=== PATIENT | male | born 1980 | race Caucasian/White ===

== ENCOUNTER 2023-07-07 16:43 | Inpatient (IN) | payer OTHER ==
[~2023-07-07] VITALS: Ht 177.8 cm; Wt 213.1 kg
[~2023-07-07 16:43] MED LIST: CARV6.25 PO; Carvedilol12.5 MG PO; DIPATR PO; LISI5 PO; Prinivil10 MG PO; RXDIPATR PO; XARELTO20 MG PO
[2023-07-07 17:19] LABS: BASOPHILS ABSOLUTE AUTO 0.05 K/mm3 (0.00-0.23); BASOPHILS PERCENT AUTO 0 % (0-2); EOSINOPHILS ABSOLUTE AUTO 0.18 K/mm3 (0.00-0.68); EOSINOPHILS PERCENT AUTO 2 % (0-6); Hemoglobin 15.4 g/dL (13.5-17.5); IMMATURE GRAN ABSOLUTE AUTO 0.04 K/mm3 (0.00-0.10); IMMATURE GRAN PERCENT AUTO 0 % (0-1); LYMPHOCYTES ABSOLUTE AUTO 1.96 K/mm3 (0.84-5.20); LYMPHOCYTES PERCENT AUTO 16 % (21-46); MONOCYTES ABSOLUTE AUTO 0.83 K/mm3 (0.16-1.47); MONOCYTES PERCENT AUTO 7 % (4-13); Mean Corpuscular HGB 28.6 pg (26.0-34.0); Mean Corpuscular HGB Conc 34.2 g/dL (31.5-36.5); Mean Corpuscular Volume 84 fL (80-100); Mean Platelet Volume 10.5 fL (9.1-12.4); NEUTROPHILS PERCENT AUTO 75 % (41-73); Platelet Count 296 K/mm3 (150-400); RDW Coefficient Variation 14.3 % (11.7-14.2); RDW Standard Deviation 43.2 fL (35.1-46.3); Red Blood Cell Count 5.39 M/mm3 (4.30-5.90); White Blood Cell Count 12.16 K/mm3 (4.00-11.30)
[2023-07-07 17:42] LABS: Albumin, Blood 3.6 g/dL (3.4-5.0); Albumin/Globulin Ratio 1.1 (0.8-1.8); Bun/Creatinine Ratio 22.4 (12.0-20.0); Calcium, Blood 8.5 mg/dL (8.5-10.1); Creatinine, Blood 1.52 mg/dL (0.60-1.20); Globulin, Blood 3.2 g/dL (2.2-4.0); Magnesium, Blood 1.9 mg/dL (1.6-2.4); Total Protein, Blood 6.8 g/dL (6.4-8.2)
[2023-07-07 21:26] LABS: Influenza A, PCR NEGATIVE (NEGATIVE); Influenza B, PCR NEGATIVE (NEGATIVE); Resp Syncytial Virus, PCR NEGATIVE (NEGATIVE); SARS-Cov-2 (COVID-19) PCR, MMC NEGATIVE (NEGATIVE)
[2023-07-07 21:55] VITALS: BP 137/92
[2023-07-07] MEDS ORDERED: HYDCHL50 PO (22:05)
[2023-07-07] MEDS ORDERED: AMLO10 PO (22:06)
[2023-07-07] MEDS ORDERED: CITALOPRAM HBR10 MG PO (22:07)
--- NOTE | 2023-07-07 22:45 | NUR ---
ARRIVAL TO UNIT PATIENT ARRIVED TO UNIT FROM ED VIA [facility] AT APPROX 2150. PATIENT ABLE TO STAND AND TRANSFER FROM [facility] TO BED INDEPENDENTLY. IS ALERT AND ORIENTED X4. COOPERATIVE WITH CARE AND ABLE TO COMMUNICATE NEEDS EFFECTIVELY. TELEMETRY SHOWING AFIB RATE 110's-130's WITH FREQUENT RATE INCREASES TO 150's-160's AT REST. RATE INCREASE 160's-170's WITH ACTIVITY. CARDIZEM GTT INCREASED FROM 15ML TO 20ML/HR. BP STABLE. DENIES CHEST PAIN OR PRESSURE. NO REPORT OF SHORTNESS OF BREATH. PO COREG AND IV LASIX ADMINISTERED PER EMAR. PATIENT REPORTING THAT HE STOPPED TAKING XARELTO APPROXIMATELY 1 MONTH AGO DUE TO COST, ORDERED DOSE ADMINISTERED PER EMAR. IS ON ROOM AIR, SATS >92%. REPORTS 7/10 RECTAL PAIN. RECEIVED IV FENTANYL IN THE ED. PATIENT REPORTING THAT "IT DIDN'T REALLY HELP FOR THAT LONG." PO TYLENOL ORDERED, PATIENT REPORTING THAT "TYLENOL WON'T TOUCH IT." THIS RN CONTACTED MD MARION. TO PUT IN ORDER FOR PO PAIN MANAGEMENT. WILL ADMINISTER PER EMAR.
--- NOTE | 2023-07-07 23:02 | NUR ---
PATIENT USES A CPAP AT HOME WHILE SLEEPING FOR NICHOLAS. HOME DEVICE NOT PRESENT AT BEDSIDE. MD MARION CONTACTED. RECEIVED ORDER FOR CPAP. RESPIRATORY THERAPY CONTACTED FOR SET-UP.
[2023-07-07 23:14] VITALS: BP 115/81
[2023-07-08] VITALS (7 sets, daily range): BP systolic 97–119; BP diastolic 61–96
[2023-07-08 01:16] LABS: Adenovirus F 40/41 Not Detected (NOT DETECT); Astrovirus Not Detected (NOT DETECT); Campylobacter Sp Not Detected (NOT DETECT); Cryptosporidium Not Detected (NOT DETECT); Cyclospora Cayetanensis Not Detected (NOT DETECT); E. Coli O157 Not Detected (NOT DETECT); Entamoeba Histolytica Not Detected (NOT DETECT); Enteroaggregative E. coli-EAEC Not Detected (NOT DETECT); Enteropathogenic E. coli-EPEC Not Detected (NOT DETECT); Enterotoxigenic E. coli-ETEC Not Detected (NOT DETECT); Giardia Lamblia Not Detected (NOT DETECT); Norovirus GI/GII Not Detected (NOT DETECT); Plesiomonas Shigelloides Not Detected (NOT DETECT); Rotavirus A Not Detected (NOT DETECT); Salmonella Sp Not Detected (NOT DETECT); Sapovirus Not Detected (NOT DETECT); Shiga Toxin-prod E. coli-STEC Not Detected (NOT DETECT); Shigella/Enteroin E. coli-EIEC Not Detected (NOT DETECT); Vibrio Cholerae Not Detected (NOT DETECT); Vibrio Sp Not Detected (NOT DETECT); Yersinia Enterocolitica Not Detected (NOT DETECT)
[2023-07-08 04:03] LABS: BASOPHILS ABSOLUTE AUTO 0.05 K/mm3 (0.00-0.23); BASOPHILS PERCENT AUTO 1 % (0-2); EOSINOPHILS ABSOLUTE AUTO 0.14 K/mm3 (0.00-0.68); EOSINOPHILS PERCENT AUTO 1 % (0-6); Hematocrit 42.3 % (37.0-53.0); Hemoglobin 13.8 g/dL (13.5-17.5); IMMATURE GRAN ABSOLUTE AUTO 0.03 K/mm3 (0.00-0.10); IMMATURE GRAN PERCENT AUTO 0 % (0-1); LYMPHOCYTES ABSOLUTE AUTO 2.27 K/mm3 (0.84-5.20); LYMPHOCYTES PERCENT AUTO 23 % (21-46); MONOCYTES ABSOLUTE AUTO 0.76 K/mm3 (0.16-1.47); MONOCYTES PERCENT AUTO 8 % (4-13); Mean Corpuscular HGB 28.3 pg (26.0-34.0); Mean Corpuscular HGB Conc 32.6 g/dL (31.5-36.5); Mean Corpuscular Volume 87 fL (80-100); Mean Platelet Volume 11.1 fL (9.1-12.4); NEUTROPHILS ABSOLUTE AUTO 6.75 K/mm3 (1.96-9.15); NEUTROPHILS PERCENT AUTO 68 % (41-73); Platelet Count 253 K/mm3 (150-400); RDW Coefficient Variation 14.2 % (11.7-14.2); RDW Standard Deviation 44.7 fL (35.1-46.3); Red Blood Cell Count 4.88 M/mm3 (4.30-5.90)
[2023-07-08 04:04] LABS: Source, Urine Clean Catch
[2023-07-08 04:11] LABS: Bilirubin, Urine Neg (Neg); Blood, Urine Neg (Neg); Glucose Qualitative, Urine Neg (Neg); Ketones, Urine Neg (Neg); Leukocyte Esterase, Urine Neg (Neg); Nitrite, Urine Neg (Neg); Protein, Urine Neg (Neg); Urobilinogen, Urine NORM (Normal)
[2023-07-08 04:27] LABS: Bun/Creatinine Ratio 22.6 (12.0-20.0); Creatinine, Blood 1.55 mg/dL (0.60-1.20)
--- NOTE | 2023-07-08 05:07 | NUR ---
SHIFT SUMMARY NO ACUTE CHANGES SINCE PREVIOUS NOTE. NO MENTATION CHANGES. PATIENT COOPERATIVE WITH CARE, INDEPENDENT IN ROOM. ABLE TO COMMUNICATE NEEDS EFFECTIVELY. TELEMETRY SHOWING AFIB 70's-90's AT REST. CARDIZEM GTT TITRATED DOWN FROM 20ML/HR TO 5ML/HR. RATE DOES INCREASE TO 130's-140's WITH MOBILITY. BP SOFT, SBP 100's-110's. MAP >65. ON ROOM AIR, SATS >92%. CPAP DEVICE AT BEDSIDE. PATIENT ABLE TO MANAGE DEVICE INDEPENDENTLY. CONTINUES TO REPORT NO CHEST PAIN OR PRESSURE. X1 EPISODE OF LOOSE STOOL. MEDICATED X1 WITH PO OXYCODONE FOR RECTUM PAIN WITH SOME RELIEF. VOIDING. CALL LIGHT IN REACH. WILL REPORT TO ONCOMING RN.
[2023-07-08 05:08] LABS: Appearance, Urine Clear (Clear); Color, Urine Yellow (P-Yellow)
--- NOTE | 2023-07-08 18:23 | NUR ---
SHIFT SUMMARY; ASSUMED CARE AT 0700, A/A/OX4, INDEPENDANT IN ROOM. CARDIZEM AT 5ML/HR WHEN ASSUMING CARE. INCREASED TO 10ML/HR PER DR. CONSTANTINO AT 0900. REMAINS IN AFIB RATE INCREASING WITH EXERTION TO 160 AT TIMES IN AM. STARTED ON LOPRESSOR IN AFTERNOON AND DC'D CARDIZEM AT [address] CONSTANTINO. HR 80-100 AT REST AND UP TO 130 WITH EXERTION. BLOOD PRESSURE STABLE. PLEASANT AND COOPERATIVE WITH CARE. WILL CONTINUE TO MONITOR AND TREAT UNTIL CHANGE OF SHIFT.
[2023-07-09] VITALS (8 sets, daily range): BP systolic 92–134; BP diastolic 59–105
[2023-07-09 04:41] LABS: Bun/Creatinine Ratio 21.8 (12.0-20.0); Calcium, Blood 8.3 mg/dL (8.5-10.1); Creatinine, Blood 1.79 mg/dL (0.60-1.20); Potassium, Blood 2.9 mmol/L (3.5-5.5)
--- NOTE | 2023-07-09 05:40 | NUR ---
PHYSICIAN CONTACT K 2.9 ON AM LABS, RESIDENT NOTIFIED, AWAITING ORDERS.
[2023-07-09 15:24] LABS: Bun/Creatinine Ratio 21.9 (12.0-20.0); Calcium, Blood 8.4 mg/dL (8.5-10.1); Creatinine, Blood 1.92 mg/dL (0.60-1.20); Potassium, Blood 3.3 mmol/L (3.5-5.5)
--- NOTE | 2023-07-09 17:54 | NUR ---
SHIFT SUMMARY; ASSUMED CARE AT 0700, A/A/OX4 DURING SHIFT, INDEPENDANT IN ROOM. SEVERAL CALLS TODAY TO DR. CONSTANTINO AND DR. GUERRERO FOR HIGH HEART RATE. VERBAL PLACED FOR MEDS. HR AT REST NEAR 100 AT TIMES AND UP TO 180 EARLIER IN SHIFT WITH EXERTION. IN AFTERNOON HEART WITH EXERTION UP TO 140-150 FOR PERIODS OF TIME BUT DID NOT SUSTAIN. CONTINUES TO REPORT SEVERE RECTAL PAIN, DECLINES PO PAIN MEDS. RECTAL NITRO PASTE PER EMAR, WILL CONTINUE TO MONITOR. BLOOD PRESSURE STABLE T/O SHIFT, 1500ML FR ORDERED TODAY. WILL CONTINUE TO MONITOR AND TREAT UNTIL CHANGE OF SHIFT.
[2023-07-10] VITALS (12 sets, daily range): BP systolic 113–135; BP diastolic 75–107
[2023-07-10 04:15] LABS: BASOPHILS ABSOLUTE AUTO 0.04 K/mm3 (0.00-0.23); BASOPHILS PERCENT AUTO 0 % (0-2); EOSINOPHILS PERCENT AUTO 2 % (0-6); Hematocrit 44.3 % (37.0-53.0); Hemoglobin 14.8 g/dL (13.5-17.5); IMMATURE GRAN ABSOLUTE AUTO 0.04 K/mm3 (0.00-0.10); IMMATURE GRAN PERCENT AUTO 0 % (0-1); LYMPHOCYTES ABSOLUTE AUTO 2.55 K/mm3 (0.84-5.20); LYMPHOCYTES PERCENT AUTO 21 % (21-46); MONOCYTES ABSOLUTE AUTO 0.92 K/mm3 (0.16-1.47); MONOCYTES PERCENT AUTO 8 % (4-13); Mean Corpuscular HGB 28.6 pg (26.0-34.0); Mean Corpuscular HGB Conc 33.4 g/dL (31.5-36.5); Mean Corpuscular Volume 86 fL (80-100); Mean Platelet Volume 11.2 fL (9.1-12.4); NEUTROPHILS ABSOLUTE AUTO 8.36 K/mm3 (1.96-9.15); NEUTROPHILS PERCENT AUTO 69 % (41-73); Platelet Count 277 K/mm3 (150-400); RDW Coefficient Variation 13.9 % (11.7-14.2); Red Blood Cell Count 5.17 M/mm3 (4.30-5.90); White Blood Cell Count 12.11 K/mm3 (4.00-11.30)
[2023-07-10 04:57] LABS: Bun/Creatinine Ratio 23.9 (12.0-20.0); Calcium, Blood 8.7 mg/dL (8.5-10.1); Creatinine, Blood 1.88 mg/dL (0.60-1.20); Magnesium, Blood 1.9 mg/dL (1.6-2.4); Thyroid Stimulating Hormone 2.38 uIU/mL (0.360-4.800)
--- NOTE | 2023-07-10 06:34 | NUR ---
SHIFT SUMMARY A/OX4, CALLS APPROPRIATELY. IND IN ROOM. SPO2 >92% ON RA. DENIES CHEST PAIN/SOB. TELE AFIB 90-170S WITH EXERTION. CONTINUES TO C/O RECTAL PAIN WITH NO RELIEF FROM LIDOCAINE GEL. VSS, NO ACUTE CHANGES AT THIS TIME. BED IN LOWEST POSIITON WITH CALL LIGHT IN REACH. WILL CONTINUE TO MONITOR AND REPORT TO ONCOMING RN.
[2023-07-10 14:13] LABS: Stool Occult Bld Immuno 1 Negative (NEGATIVE)
[2023-07-10 16:47] LABS: Bun/Creatinine Ratio 24.6 (12.0-20.0); Calcium, Blood 8.9 mg/dL (8.5-10.1); Creatinine, Blood 1.71 mg/dL (0.60-1.20); Potassium, Blood 3.5 mmol/L (3.5-5.5)
--- NOTE | 2023-07-10 17:07 | NUR ---
SHIFT SUMMARY: PT ALERT AND ORIENTED X4, ABLE TO FOLLOW COMMANDS AND MAKE NEEDS KNOWN. STRENGTH EQUAL BILATERALLY. AFEBRILE. SPO2 >96% ON ROOM AIR, RESPIRTAIONS EVEN AND UNLABORED AT REST. PT STATES SHORTNESS OF BREATH WITH ACTIVITY. BP STABLE, HR REMAINS AFIB 110'S-170'S WITH ACTIVITY. DENIES CP/PRESSURE. CALL PLACED TO MD THIS AFTERNOON REGARDING PT HR. NEW ORDERS RECEIVED, SEE EMAR. PT WITH +3 EDEMA IN BLE. PT REMAINS IND TO AND FROM BATHROOM THROUGHOUT THE SHIFT. APPROX 1800ML OF URINIARY OUTPUT, MUTIPLE BM. PT CURRENTLY SITTING ON SIDE OF BED, WATCHING TV. BED IN LOW, CALL LIGHT IN REACH, WILL REPORT TO ONCOMING RN.
[2023-07-10 17:09] LABS: Digoxin (Lanoxin) 0.71 ug/mL (0.80-2.00)
[2023-07-11] VITALS (9 sets, daily range): BP systolic 114–136; BP diastolic 63–96
[2023-07-11 05:17] LABS: Hematocrit 42.2 % (37.0-53.0); Mean Corpuscular HGB 28.5 pg (26.0-34.0); Mean Corpuscular HGB Conc 33.2 g/dL (31.5-36.5); Mean Corpuscular Volume 86 fL (80-100); Mean Platelet Volume 10.9 fL (9.1-12.4); Platelet Count 202 K/mm3 (150-400); RDW Coefficient Variation 13.9 % (11.7-14.2); RDW Standard Deviation 43.2 fL (35.1-46.3); Red Blood Cell Count 4.91 M/mm3 (4.30-5.90); White Blood Cell Count 10.85 K/mm3 (4.00-11.30)
--- NOTE | 2023-07-11 06:03 | NUR ---
SHIFT SUMMARY THIS RN ASSUMED CARE OF PT AT 1900, REPORT FROM MAI PATTON. PT A&O X4, PLEASANT AND COOPERATIVE WITH CARE. AT START OF SHIFT, PT'S HR IN 130 - 150'S, OCCASSIONALLY TOUCHING INTO THE 170'S WITH EXERTION. DAYSHIFT PROVIDERED ORDERED CARDIZEM GTT, THIS RN STARTED GTT AT 1945, TITRATED TO 10 MLS/HR. AROUND 0200, HR SUSTAINING 80 - 90'S, GTT TITRATED DOWN, HR REMAINED 80 - 90'S, WITH OCCASSIONAL TOUCH IN TO HIGH 70'S. THIS RN TITRATED CARDIZEM GTT OFF AND CURRENTLY STILL IN STANDBY. BLOOD PRESSURES 120 - 130'S T/O. CURRENTLY PT HRR REMAINS AFIB WITH RATE IN 80'S - 90'S ALTHOUGH HR STILL INCREASING TO 1 TEENS - 130'S WITH ACTIVITY. OCCASSIONALLY STILL INCREASING TO 140 - 150'S. PT CONTINUES TO HAVE RECTAL PAIN, DID NOT REQUEST MEDICATION AND WHEN OFFERED DECLINED. PT REPOSITIONED INDEPENDENTLY TO HELP WITH PAIN. PT DID SHOW THIS RN SOME LIGHT PINK/RED DRAINAGE FROM RECTUM AREA. STATES "IS NOT REALLY NEW", UNCLEAR OF WHEN THIS STARTED. PT DENIES ANY BLOOD IN STOOL OR OTHER CONCERNS FOR BLEEDING. PT AMBULATING AND USING RESTROOM INDEPENDENTLY. PT REMAINS ASYMPTOMATIC EXCEPT "SHORT OF BREATH" WITH ACTIVITY. R HAND REMAINS RED AND SWOLLEN FROM PREVIOUS IV INFILTRATION; REDNESS HAS SLIGHTLY INCREASED OUTSIDE OF PREVIOUS MARKED AREA, SWELLING HAS SLIGHTLY INCREASED WELL. PT USING CPAP WHILE SLEEPING, TAKING BREAKS NEEDED. PT FAIRLY RESTLESS DURING THE NIGHT D/T PAIN AND "DISCOMFORT" OF RECTUM. PT HAD AROUND 2800 MLS OR MORE OUT THIS SHIFT ; SOME VOIDS WERE UNMEASURED D/T URGENCY. PT FINALLY ABLE TO REST AND IS CURRENTLY ASLEEP. CALL LIGHT IN REACH, WILL UPDATE ONCOMING RN
[2023-07-11 06:10] LABS: Bun/Creatinine Ratio 30.2 (12.0-20.0); Calcium, Blood 8.4 mg/dL (8.5-10.1); Creatinine, Blood 1.39 mg/dL (0.60-1.20); Potassium, Blood 2.8 mmol/L (3.5-5.5)
[2023-07-11 08:42] LABS: Digoxin (Lanoxin) 0.87 ug/mL (0.80-2.00)
--- NOTE | 2023-07-11 17:10 | NUR ---
SHIFT SUMMARY: PT ALERT AND ORIENTED X4, ABLE TO FOLLOW COMMANDS AND MAKE NEEDS KNOWN. BP STABLE, AFEBRILE, SPO2 >98% ON ROOM AIR. HR AFIB 130'S AT BEGINNING OF SHIFT, DILT DRIP RESTARTED AT APPROX [id number] AT 10MG/HR. UPDATED, NEW ORDERS RECEIVED FOR PO DILTIZEM, SEE EMAR. DILT DRIP PLACED ON STANDBY APPROX 1030. HR CURRENTLY AFIB 70'S-120S WITH ACTIVITY. DENIES CP/PRESSURE. PT CURRENTLY DIURESING, APPROX 1500ML OF URINARY OUTPUT THIS SHIFT. +2 EDEMA IN BLE. PT WITH SWELLING TO R.HAND DUE TO INFILTRATED IV 07/10, NO ADDITIONAL SWELLING/REDNESS. PT REMAINS IND IN ROOM, CURRENTLY SITTING IN CHAIR EATING DINNER. CALL LIGHT IN REACH, WILL REPORT TO ONCOMING RN.
[2023-07-11 17:35] LABS: Albumin, Blood 3.5 g/dL (3.4-5.0); Anion Gap 8 mmol/L (6-16); Blood Urea Nitrogen 34 mg/dL (8-24); Bun/Creatinine Ratio 24.5 (12.0-20.0); CO2, Blood 29 mmol/L (21-32); Calcium, Blood 8.5 mg/dL (8.5-10.1); Chloride, Blood 104 mmol/L (98-108); Creatinine, Blood 1.39 mg/dL (0.60-1.20); Glomerular Filtration Rate 64 (60-); Glucose, Blood 108 mg/dL (70-99); Magnesium, Blood 1.6 mg/dL (1.6-2.4); Phosphorus, Blood 3.3 mg/dL (2.5-4.9); Potassium, Blood 3.2 mmol/L (3.5-5.5); Sodium, Blood 141 mmol/L (136-145)
[2023-07-12] VITALS: BP 123/101
[2023-07-12 04:11] LABS: Hematocrit 45.4 % (37.0-53.0); Hemoglobin 14.9 g/dL (13.5-17.5); Mean Corpuscular HGB 28.5 pg (26.0-34.0); Mean Corpuscular HGB Conc 32.8 g/dL (31.5-36.5); Mean Corpuscular Volume 87 fL (80-100); Mean Platelet Volume 11.2 fL (9.1-12.4); Platelet Count 222 K/mm3 (150-400); RDW Coefficient Variation 14.1 % (11.7-14.2); RDW Standard Deviation 44.6 fL (35.1-46.3); Red Blood Cell Count 5.23 M/mm3 (4.30-5.90); White Blood Cell Count 10.11 K/mm3 (4.00-11.30)
[2023-07-12 04:35] VITALS: BP 130/84
[2023-07-12 04:54] LABS: Anion Gap 7 mmol/L (6-16); Blood Urea Nitrogen 35 mg/dL (8-24); Bun/Creatinine Ratio 25.5 (12.0-20.0); CO2, Blood 30 mmol/L (21-32); Calcium, Blood 8.5 mg/dL (8.5-10.1); Chloride, Blood 105 mmol/L (98-108); Creatinine, Blood 1.37 mg/dL (0.60-1.20); Digoxin (Lanoxin) 0.85 ug/mL (0.80-2.00); Glomerular Filtration Rate 65 (60-); Glucose, Blood 101 mg/dL (70-99); Sodium, Blood 142 mmol/L (136-145)
--- NOTE | 2023-07-12 05:19 | NUR ---
SHIFT SUMMARY PT REMAINS A&O X4. VSS; REMAINS IN AFIB RATE IN 80 - 100'S, AFEBRILE, REMAINS ON RA, SBP 120 - 130'S. PT REMAINS CP/PRESSURE FREE, DENIES PALPITATIONS, OR DIZZINESS. CONTINUES TO REPORT MILD SOB WITH ACTIVITY AND AMBULATION. HR CONTINUES TO INCREASE TO 150 - 170'S WITH ACTIVITY, ALTHOUGH PT IS NOT SUSTAINING THIS RATE; ONLY BRIEFLY TOUCHES UP AND THEN QUICKLY BACK TO 80 - 90'S. PT ASYMPTOMATIC WHEN HR INCREASES AND SEEMS TO OCCURRING LESS OFTEN THAN PREVIOUS. EDEMA IMPROVING; CURRENTLY +2. R HAND REMAINS REDDENED AND SWOLLEN; HAS INCREASED SOME THIS SHIFT, NEW MARKINGS PLACED. PT ABLE TO USE AND MOVE EXTREMITY AND FEEL SENSATION. PT DOES STILL REPORT TENDERNESS AND TIGHTNESS THAT "DOESN'T SEEM TO BE IMPROVING'. PT REPORTS RECTAL PAIN IS "BETTER" BUT STILL THERE AND MORE SO "ANNOYING AND UNCOMFORTABLE" AT THIS TIME. PT USING RESTROOM AND AMBULATING IN ROOM INDEPENDENTLY. FR IN PLACE AND MET FOR NOC SHIFT. PT DID NOT SLEEP MUCH AT ALL, CURRENTLY STILL AWAKE IN ROOM, WATCHING TV. CALL LIGHT IN REACH, WILL UPDATE ONCOMING RN
[2023-07-12 08:02] VITALS: BP 110/81
[2023-07-12 13:34] VITALS: BP 131/89
[2023-07-12 15:48] LABS: Bun/Creatinine Ratio 24.4 (12.0-20.0); Calcium, Blood 8.4 mg/dL (8.5-10.1); Creatinine, Blood 1.31 mg/dL (0.60-1.20); Potassium, Blood 3.4 mmol/L (3.5-5.5)
--- NOTE | 2023-07-12 17:35 | NUR ---
SHIFT SUMMARY S/P AFIB c RVR, A/OX4, VSS, TOLERATING PO, INDEPENDENT IN THE ROOM MEDS ORDERED, PAIN REPORTED IN HIS RECTUM IN WHICH SURGERY WAS CONSULTED TODAY TO SEE HIM IN THE MORNING, CONTINUING TO ADJUST CARDIAC MEDS FOR RATE CONTROL, SPIKES STILL HAPENNING INTERMITENTLY PRIMARILY WITH ACTIVITY. PT STATES HE FEELS THAT HIS PAIN IS CONTRIBUTING TO HIS HEART RATE, PRN LOPRESSOR GIVEN ONE TIME IN ADDITION TO SCHEDULED MEDS FOR INCREASED HR TODAY. NO OTHER EVENTS THIS SHIFT, CALL LIGHT IN REACH.
[2023-07-12 20:00] VITALS: BP 126/86
--- NOTE | 2023-07-12 20:33 | NUR ---
ASSUMPTION OF CARE THIS RN ASSUMED CARE OF PT AT 1900, PT UP IN ROOM D/T "PAIN" AND BRING "UNCOMFORTABLE". PT DENIES CHANGES IN PRESENTATION OF PAIN FROM PREVIOUS. PT IS A&O X4. VS; SBP 126, AFIB W/RATE IN 1 TEENS - 130'S, INCREASING TO 170 - 180 WITH ACTIVITY. PT ASYMPTOMATIC AND NOT SUSTAINING INCREASED HR AT THIS TIME. PT DENIES SOB EXCEPT "MILD" WITH ACTIVITY. PT DENIES N/V/D. PT DENIES ANY CONCERNS WITH VOIDING OR BM, PT DOES REPORT HAD A BM THIS AFTERNOON. R HAND CONTINUES TO BE REDDENED AND SWOLLEN, REDNESS CONTINUES TO MOVE OUTSIDE PREVIOUS MARKED AREAS. MOVEMENT, STRENGTH, SENSATION INTACT, AREA IS SLIGHTLY WARM TO THE TOUCH. OTHERWISE PT DENIES NEEDS AT THIS TIME. CALL LIGHT IN REACH
[2023-07-12 23:54] VITALS: BP 123/91
[2023-07-13] VITALS (8 sets, daily range): BP systolic 105–132; BP diastolic 70–113
[2023-07-13 04:41] LABS: Bun/Creatinine Ratio 24.1 (12.0-20.0); Calcium, Blood 8.3 mg/dL (8.5-10.1); Creatinine, Blood 1.33 mg/dL (0.60-1.20); Magnesium, Blood 1.8 mg/dL (1.6-2.4); Potassium, Blood 3.5 mmol/L (3.5-5.5)
--- NOTE | 2023-07-13 07:21 | NUR ---
SHIFT SUMMARY A&O X4. PT REMAINS IN AFIB WITH POORLY CONTROLLED RATE; RATES ARE LABILE RANGING FROM 80 - 180'S. PT HR INCREASING MORE FREQUENTLY WITH EXERTION, BUT HR IS ALSO BEGINNING TO INCREASE EVEN WHILE PT IS AT REST, TOUCHING INTO 140'S - 150'S. PT REMAINS ASYMPTOMATIC AND VSS T/O. 2 LOPRESSOR IV PUSHES ADMINISTERED PER EMAR WITH LITTLE TO NO EFFECT ON HR. PT STATES HIS PAIN IS "STARTING TO BECOME MORE UNBEARABLE AND ANNOYING". PT ALSO STATES HE IS "VERY TIRED" AND DELIRIOUS D/T RECTAL PAIN AND INABILITY TO GET ADEQUATE REST. THIS RN NOTIFIED RESIDENT OF UNCONTROLLED AND LABILE HR WELL PAIN. ORDER FOR DILUADID 0.5 MG - 1 MG Q4. THIS RN ADMINISTERED PER EMAR WITH GOOD PAIN RELIEF BUT PT'S HR STILL REMAINS HIGH AND LABILE. PT CURRENTLY RESTING, ASLEEP IN ROOM. PT DENIES DIARRHEA AT THIS TIME; REPORTS HAVING ONE LARGE, SOFT BM THAT WAS YELLOW/ELLIS IN COLOR. DENIES OTHER CONCERNS WITH STOOLS. PT VOIDING, USING RESTROOM INDEPENDENTLY. PT CURRENTLY RESTING, SLEEPING IN ROOM. CALL LIGHT IN REACH
--- NOTE | 2023-07-13 09:04 | NUR ---
UPDATE PT'S METOPROLOL INCREASED THIS AM. PT ALREADY RECEIVED PREVIOUS DOSE OF METOPROLOL THIS AM BEFORE BEING DISCONTINUED. CALL PLACED TO MD FLOWER. MD FLOWER WITH ORDERS TO HOLD NEW DOSE INCREASE AND START TONIGHT.
--- NOTE | 2023-07-13 09:17 | NUR ---
UPDATE MD FLOWER CALLED THIS RN. REVIEWING PTS ELEVATED HR, MD FLOWER W/ ORDERS FOR ONE TIME DOSE OF 37.5 METOPROLOL TO EQUAL NEW INCREASED DOSE.
[2023-07-13 10:10] LABS: 5-HIAA URINE - PER 24H 1 mg/d (0-15); 5-HIAA URINE - PER VOLUME 2.2 mg/L; 5-HIAA URINE - RATIO TO CRT 3 mg/gCR (0-14); CREATININE, URINE - PER 24H 480 mg/d (1000-2500); CREATININE, URINE - PER VOLUME 80 mg/dL; HOURS COLLECTED 24 hr; TOTAL VOLUME 600 mL
--- NOTE | 2023-07-13 17:56 | NUR ---
shift summary Pt a&ox4. sp02>90% on ra. Telemetry shows afib, hr 80's-170's. Metoprolol increased. Hr currently 90's at rest. Pain controlled by duiladid x2 this shift, see emar. MD Thayer in room this shift to consult, assessed rectum, educated pt on anal fissure. Pt independent in room, up to bathroom independently. Pt reports difficult time staying within fluid restriction. Pt currently napping in chair. Call light in reach.
[2023-07-14] VITALS (8 sets, daily range): BP systolic 108–137; BP diastolic 68–103
[2023-07-14 05:17] LABS: Bun/Creatinine Ratio 25.3 (12.0-20.0); Calcium, Blood 8.5 mg/dL (8.5-10.1); Creatinine, Blood 1.66 mg/dL (0.60-1.20); Potassium, Blood 3.5 mmol/L (3.5-5.5)
--- NOTE | 2023-07-14 05:31 | NUR ---
SHIFT SUMMARY PT REMAINS A&O X4. VSS; ALTHOUGH PT HRR REMAINS IN AFIB AND LABILE; 90'S - 170'S, OCCASSIONALLY TOUCHING INTO 180'S WITH MOVEMENT. WHEN PT IS RESTING WELL, HR IN 90 - 100'S. BP STABLE, AFEBRILE, AND REMAINS ON RA. PT SYMPTOMATIC AND CONTINUES TO DENY SYMPTOMS. THIS RN DOES NOTE PT DIAPHORETIC AND PALLOR IN COLOR. PT DENIES ANY SX AND JUST STATES THAT "IT IS HOT IN HERE". TEMPERATURE ADJUSTED WHICH SEEMED TO HELP SOME, BUT PT STILL FAILRY DIAPHORETIC ON AND OFF. PAIN MEDICATION PER EMAR WHICH SEEMS TO PROVIDE MODERATE RELIEF FOR THE PT; HE REPORT IT "TAKES THE EDGE OFF ENOUGH TO RELAX SOME". LOPRESSOR PER EMAR ADMINISTERED X1 FOR HR. FLUID RESTRICTION IN PLACE 450 MLS THIS SHIFT. PT VOIDING WELL AND REPORTS HAVING ONE BM THAT WAS SOFT AND BROWN IN COLOR. CALL LIGHT REACH. WILL UPDATE ONCOMING RN
--- NOTE | 2023-07-14 18:39 | NUR ---
SHIFT SUMMARY NO ACUTE CHANGES THIS SHIFT. PT A&OX4, SP02>90% ON RA. TELEMETRY SHOWS AFIB, HR 80'S-180'S, VERY LABILE. AMIO GTT STARTED W/ BOLUS THIS EVENING PER EMAR. LOPRESSOR PUSH GIVEN PRN X1 D/T ELEVATED HR PER EMAR. PT C/O OF NAUSEA, ZOFRAN GIVEN X1. PAIN MEDICATION GIVEN PER EMAR FOR RECTAL PAIN. PT INDEPENDENT, BATHROOM TO VOID. STATES MULTIPLE SOFT BM'S THIS SHIFT. CURRENTLY SITTING IN CHAIR WATCHING TV. NAPPED ABOUT 2 HRS THIS SHIFT W/ CPAP ON.
[2023-07-15 04:11] LABS: Albumin, Blood 3.6 g/dL (3.4-5.0); Albumin/Globulin Ratio 0.9 (0.8-1.8); Bilirubin, Total 0.9 mg/dL (0.1-1.0); Bun/Creatinine Ratio 27.7 (12.0-20.0); Calcium, Blood 8.6 mg/dL (8.5-10.1); Creatinine, Blood 1.66 mg/dL (0.60-1.20); Globulin, Blood 3.8 g/dL (2.2-4.0); Potassium, Blood 3.6 mmol/L (3.5-5.5); Total Protein, Blood 7.4 g/dL (6.4-8.2)
[2023-07-15 04:13] VITALS: BP 149/97
--- NOTE | 2023-07-15 05:11 | NUR ---
END OF SHIFT NOTE: PT REMAINS ALERT, ORIENTED X4. ABLE TO CALL APPROPRIATELY AND COMMUNICATE NEEDS W/ STAFF. UP IN CHAIR FOR MAJORITY OF NIGHT. HR 80-140'S, TOUCHING 160'S; AFIB ON TELE. AMIO GTT CONTINUES TO INFUSE PER EMAR. SBP 130'S, MAP >65. PT DENIES CHEST PAIN/PRESSURE. SPO2 90% OR GREATER ON RA. AFEBRILE. C/O MODERATE-SEVERE RECTAL PAIN, MEDICATED PER EMAR W/ RELIEF. ABLE TO TRANSFER TO RESTROOM AND IN ROOM INDEPENDENTLY, REPORTS SOFT BM'S OVERNIGHT. 1500 [address]RICTION IN PLACE. NO OTHER NEEDS AT THIS TIME. CALL LIGHT WITHIN REACH. WILL REPORT TO ONCOMING RN.
[2023-07-15 08:03] VITALS: BP 129/97
[2023-07-15 08:37] LABS: BASOPHILS ABSOLUTE AUTO 0.05 K/mm3 (0.00-0.23); BASOPHILS PERCENT AUTO 1 % (0-2); EOSINOPHILS ABSOLUTE AUTO 0.19 K/mm3 (0.00-0.68); EOSINOPHILS PERCENT AUTO 2 % (0-6); Hematocrit 46.7 % (37.0-53.0); Hemoglobin 14.8 g/dL (13.5-17.5); IMMATURE GRAN ABSOLUTE AUTO 0.02 K/mm3 (0.00-0.10); IMMATURE GRAN PERCENT AUTO 0 % (0-1); LYMPHOCYTES ABSOLUTE AUTO 2.28 K/mm3 (0.84-5.20); LYMPHOCYTES PERCENT AUTO 26 % (21-46); MONOCYTES ABSOLUTE AUTO 0.76 K/mm3 (0.16-1.47); MONOCYTES PERCENT AUTO 9 % (4-13); Mean Corpuscular HGB 28.1 pg (26.0-34.0); Mean Corpuscular HGB Conc 31.7 g/dL (31.5-36.5); Mean Corpuscular Volume 89 fL (80-100); Mean Platelet Volume 11.8 fL (9.1-12.4); NEUTROPHILS PERCENT AUTO 63 % (41-73); Platelet Count 249 K/mm3 (150-400); RDW Coefficient Variation 13.8 % (11.7-14.2); Red Blood Cell Count 5.27 M/mm3 (4.30-5.90)
[2023-07-15 11:42] VITALS: BP 117/92
[2023-07-15 16:22] VITALS: BP 112/96
--- NOTE | 2023-07-15 18:36 | NUR ---
SHIFT SUMMARY P[T A/O X4 AND COOPERATIVE OF CARE. PT ABLE TO EXPRESS NEEDS AND CALLS APPROPIATE. PT HR REMAINED IN UNCONTROLED AFIB WITH RATES RANGING FROM 80-160'S, NO REPORT OF CHEST PAIN/PRESSURE, DIZZINESS/LIGHT HEADEDNESS. PT OTHE VS THROUGHOUT SHIFT WITH O2 SATS IN THE 90'S ON RA. NO REPORT OF SOB/DYSPNEA THROUGHOUT SHIFT. PT INDEPENDENT IN ROOM, SAT MAJORITY OF SHIFT IN RECLINER WITH FREQUENT PERIODS OF STANDING AND WALKING IN ROOM. PT PAIN CONTROLED WITH DILAUDID PER ORDER, DILAUDID CHANGED TO PO, SEE EMAR. PT SEEN BY CARDIOLOGY TODAY, ADJUSTMENT TO MEDS, NO CARDIOLOGY PROCEDURE SCHEDULED AT THIS TIME.
[2023-07-15 20:36] VITALS: BP 14/90; BP 140/90
[2023-07-16] VITALS (7 sets, daily range): BP systolic 97–126; BP diastolic 57–108
--- NOTE | 2023-07-16 04:43 | NUR ---
SHIFT SUMMARY. PT HAS BEEN DOING WELL THROUGHOUT SHIFT. AOX4, PLEASANT, COOPERATIVE WITH CARE. INDEPENDENT WITHIN ROOM, CALLS APPROPRIATELY FOR ASSISTANCE. PAIN HAS BEEN ADEQUATELY MANAGED ON PRN DILAUDID 2 MG PO. RAC IV APPEARED TO INFILTRATE EARLY IN SHIFT WHILE AMIODARONE WAS RUNNING. NEW IV STARTED IN LFA. RAC MILDLY FIRM AND TENDER. AMPHYDASE ADMINISTERED AT SITE. SINCE ADMINISTRATION, PT REPORTS TENDERNESS IS MARGINALLY BETTER AND IT IS ONLY REALLY PAINFUL WHEN PRESSED. REDNESS APPEARS TO HAVE RETREATED A BIT WELL. MARKED AREA OF REDNESS WITH SKIN MARKER FOR CONTINUING OBSERVATION. TELE ON THROUGHOUT SHIFT, PT TACHY WHEN TRANSFERRING OTHERWISE NO CHANGES ON TELE THIS SHIFT. PT WEARS CPAP AT NIGHT, HAS NOT SLEPT MUCH THIS SHIFT THUS FAR BUT HAS BEEN PUTTING ON CPAP INDEPENDENTLY WHEN GOING TO SLEEP. VITALS HAVE BEEN STABLE, SATTING WELL ON ROOM AIR AND ON CPAP WHEN APPLIED. BED LOCKED IN LOWEST POSITION. CALL LIGHT LEFT WITHIN REACH. CONTINUING TO MONITOR.
[2023-07-16 09:02] LABS: Bun/Creatinine Ratio 26.1 (12.0-20.0); Calcium, Blood 8.2 mg/dL (8.5-10.1); Creatinine, Blood 1.65 mg/dL (0.60-1.20); Potassium, Blood 3.4 mmol/L (3.5-5.5)
--- NOTE | 2023-07-16 18:08 | NUR ---
SHIFT SUMMARY PT IS A&OX4, IND IN THE ROOM, CALLS APPRORPRAITELY, AND HAS BEEN ON RA ALL DAY. ON TELE HE HAS BEEN AFIB 80'S-150'S. HIS HR INCREASES WITH ACTIVITY AND PAIN. HE DOES HAVE SIGNIFICANT PAIN RELATED TO ANAL FISSURES AND RECIEVES PO DILAUDID Q4 HOURS. EVEN WHEN THE PT'S HR IS TACHY THE PT IS ASYMPTOMATIC AND HE DENIES ANY ANGINA OR CHEST PRESSURE. CARDIOLOGY WAS CONSULTED AND HAS INCREASED HIS METOPRPLOL AND WE HAVE STARTED DIURESING THE PT. PT RESPONDING TO DIURETICS. SEE I'S & O'S. NO ACUTE EVENT'S FIRE IGNITION RISK HAS BEEN ASSESSED.
--- NOTE | 2023-07-16 18:36 | NUR ---
AT ABOUT 1836 PT HAD 10 BEAT RUN OF VTACH. PT SAID HE FELT PALPITATIONS BUT NOT CHEST PAIN. HE WAS JUST SITTING IN THE CHIAR RESTING.
[2023-07-16 19:59] LABS: Magnesium, Blood 1.6 mg/dL (1.6-2.4); Potassium, Blood 3.5 mmol/L (3.5-5.5)
[2023-07-17 03:21] VITALS: BP 132/100
--- NOTE | 2023-07-17 04:00 | NUR ---
SHIFT SUMMARY. PT HAS BEEN DOING WELL THROUGHOUT THIS SHIFT. NO ACUTE CHANGES. AOX4, PLEASANT, COOPERATIVE WITH CARE. PT CONTINUES TO HAVE LABILE HEART RATE, TACHY WITH ANY AMBULATION OR TRANSFER. ON SHIFT ASSESSMENT, DID NOTE A VERY BRIEF SHARP PAIN SENSATION ON HIS LEFT SIDE DURING AUSCULTATION OF THE HEART. PT REPORTS THE PAIN WENT AWAY QUICKLY AND IT HAS NOT HAPPENED SINCE. NO RYTHYM CHANGES ON TELE THROUGHOUT SHIFT. PT CONTINUES TO BE INDEPENDENT, SATTING WELL ON ROOM AIR, WEARING CPAP WHILE SLEEPING. PAIN ADEQUATELY MANAGED ON CURRENT MEDICATION REGIMEN. PT CALLS APPROPRIATELY FOR ASSISTANCE. ABLE TO MAKE NEEDS KNOWN. RAC INFILTRATION SITE APPEARS MOSTLY UNCHANGED FROM PREVIOUS SHIFT WITH THIS NURSE BUT PT REPORTS IT FEELS BETTER AND IT APPEARS TO BE LESS TENDER ON PALPATION. BED LOCKED IN LOWEST POSITION. CALL LIGHT LEFT WITHIN REACH. CONTINUING TO MONITOR.
[2023-07-17 07:43] LABS: Calcium, Blood 8.2 mg/dL (8.5-10.1); Creatinine, Blood 1.6 mg/dL (0.60-1.20); Potassium, Blood 3.2 mmol/L (3.5-5.5)
[2023-07-17 08:57] VITALS: BP 107/83
[2023-07-17 11:11] VITALS: BP 121/108
--- NOTE | 2023-07-17 12:33 | NUR ---
PT ALERT AND ORIENTED X 4, COOPERATIVE WITH CARE AND ABLE TO MAKE NEEDS KNOWN. PERRLA. PT ON RA AND MAINTAINING 02 SATURATION ABOVE 92%, HE DENIES SOB. PT'S HR AFIB 110'S-150'S, HR INCREASES WITH ACTIVITY. NOTIFIED OF PT'S RATE AND RHYTHM AND PT MEDICATED PER EMAR. PT EXPRESSED THAT HIS MAIN CONCERN TODAY IS THE PAIN IN HIS RECTUM FROM HIS ANAL FISSURE. NOTIFIED AND MD WROTE AN RX FOR NIFEDIPINE CREAM. PT IS GOING TO HAVE A FRIEND MAINTENANCE REPRESENTATIVE RX AND BRING IT TO PT SO HE CAN START USING IT NOW. OK'D THIS HOSPITAL DOES NOT HAVE THIS MEDICATION IN THIS FORM. ANAL FISSURE OBSERVED AND APPEARS TO BE INTERNAL FISSURE NO EXTERNAL FISSURE SEEN. PT HAS BEEN MEDICATD PER EMAR FOR HIS PAIN & HE IS SITTING ON PILLOWS. PT IS INDEPENDENT IN ROOM AND HAS SHOWERED TODAY. PT IS EDEMATOUS THROUGHOUT HIS BODY, MEDICATED PER EMAR. PT HAS HAD 300 OUTPUT SO FAR TODAY SINCE SHIFT CHANGE, NOTIFIED. PT CURRENTLY SITTING IN HIS CHAIR AND WATCHING TV. CALL LIGHT WITHIN REACH.
[2023-07-17 15:55] VITALS: BP 117/88
--- NOTE | 2023-07-17 17:36 | NUR ---
SHIFT SUMMARY SEE PREVIOUS NOTE. SINCE PREVIOUS NOTE WAS WRITTEN PTS HR STARTED SUSTAINING 140'S-160'S AFIB. WAS NOTIFIED & ORDERS PLACED. 80MG LASIX WAS ADMINISTERED AND PT HAS HAD 600ML'S OUTPUT SINCE IT WAS ADMINISTERED. PT DUE TO START AMIODARONE 400MG BID STARTING DARLENE. PTS HR CURRENTLY AFIB 120'S-160'S. HE DENIES CHEST PAIN/PRESSURE. PTS FAMILY MEMBER DROPPED OFF THE NIFEDIPINE CREAM. PT WOULD LIKE FIRST ADMINISTRATION OF CREAM TO BE AFTER HIS NEXT PAIN MEDICATION HAS BEEN ADMINISTERED. PT VISITED WITH FAMILY MEMBER BRIEFLY DARLENE. PT CURRENTLY UP IN CHAIR IN HIS ROOM WATCHING TV. CALL LIGHT WITHIN REACH.
[2023-07-17 20:24] VITALS: BP 134/106
[2023-07-17 23:51] VITALS: BP 127/95
--- NOTE | 2023-07-18 04:09 | NUR ---
SHIFT SUMMARY. PT HAS BEEN DOING WELL THIS SHIFT. NO ACUTE CHANGES. AOX4, PLEASANT, COOPERATIVE WITH CARE. PT HEART RATE REMAINS LABILE BUT HAS MAINTAINED LOWER THIS SHIFT THAN PREVIOUS SHIFTS WITH THIS RN, HOLDING IN THE 70s-90s WHEN PT IS SLEEPING. PT HAS BEEN ABLE TO SLEEP MORE THIS SHIFT THAN PREVIOUS SHIFTS WITH THIS RN WELL. CONTINUES TO TACHY UP WHEN AMBULATORY OR TRANSFERRING. SWITCHED HOME MED PASTE TO Q6 SCHEDULED PER MEDICATION PROTOCOL. PT TOLERATES APPLICATION WELL. PAIN HAS BEEN WELL MANAGED VIA EMAR BUT PT DOES NOT A LINGERING "ANNOYING FEELING" EVEN WHEN THERE IS NO ACUTE PAIN. THIS FEELING MOST OFTEN PREVENTS HIM FROM RELAXING OR BEING ABLE TO SLEEP. VS STABLE. BED LOCKED IN LOWEST POSITION. CALLS APPROPRIATELY FOR ASSISTANCE. CALL LIGHT LEFT WITHIN REACH. CONTINUING TO MONITOR.
[2023-07-18 04:50] VITALS: BP 101/74
[2023-07-18 05:20] LABS: Bun/Creatinine Ratio 26.1 (12.0-20.0); Calcium, Blood 7.9 mg/dL (8.5-10.1); Creatinine, Blood 1.61 mg/dL (0.60-1.20); Potassium, Blood 3.4 mmol/L (3.5-5.5)
[2023-07-18 07:12] VITALS: BP 144/106
[2023-07-18 11:42] VITALS: BP 120/102
[2023-07-18 15:21] LABS: Bun/Creatinine Ratio 25.5 (12.0-20.0); Creatinine, Blood 1.53 mg/dL (0.60-1.20); Potassium, Blood 3.6 mmol/L (3.5-5.5)
[2023-07-18 16:27] VITALS: BP 129/91
[2023-07-18 16:59] VITALS: BP 121/96
--- NOTE | 2023-07-18 17:00 | NUR ---
SHIFT SUMMARY PT ALERT AND ORIENTED X 4, COOPERATIVE WITH CARE AND ABLE TO MAKE NEEDS KNOWN. BONNIE. PT ON RA AND CONTINUES TO MAINTAIN 02 SATURATION ABOVE 92%, CPAP AT NIGHT. PT'S HR 100'S-140'S AFIB, ELEVATED BP, CARDIOLOGY AND HOSPITALIST AWARE. CURRENTLY DIURESING PT. PT CONTINUES TO COMPLAIN OF PAIN IN RECTUM FROM INTERNAL ANAL FISSURE, HOWEVER HE SAID THAT SINCE WE STARTED NIFEDIPINE CREAM LAST NIGHT PAIN IS NOW MORE ANNOYING THAN INTENESLY PAINFUL. PT CONTINUES TO BE INDEPENDENT IN ROOM. PT HAD 1300 URINE OP BEFORE HE TRANSFERRED TO MEDICAL FLOOR AT APPROXIMATELY 1638. PT CONTINUES TO BE EDEMATOUS THROUGHOUT HIS BODY. WHEN PT TRANSFERRED TO MEDICAL FLOOR HE LEFT WITH ALL OF HIS BELONGINGS, MEDICATIONS, AND CHART. PT WAS STABLE AT TIME OF TRANSFER. HE WAS WHEELED UP TO MEDICAL FLOOR BY SCALER VIA WHEELCHAIR.
--- NOTE | 2023-07-18 17:29 | NUR ---
RN TO RN REPORT AT 1620, PATIENT RECIEVED TO UNIT AT 1645. NO ACUTE ISSUES AT THIS TIME. MEDICATIONS AND PERSONAL BELONGINGS ACCOUNTED FOR.
[2023-07-18 19:58] VITALS: BP 96/79
[2023-07-19 04:54] VITALS: BP 91/66
[2023-07-19 06:07] LABS: Bun/Creatinine Ratio 23.3 (12.0-20.0); Calcium, Blood 7.9 mg/dL (8.5-10.1); Creatinine, Blood 1.63 mg/dL (0.60-1.20); Potassium, Blood 3.5 mmol/L (3.5-5.5)
--- NOTE | 2023-07-19 06:20 | NUR ---
SUMMARY PT PAIN MANAGED WELL PER MAR. PT IS FATIGUED AND IS HAVING TROUBLE SLEEPING. PT HAD NO NEW COMPLAINTS. CALL LIGHT IN REACH.
[2023-07-19 07:23] VITALS: BP 94/76
--- NOTE | 2023-07-19 07:55 | NUR ---
CALL TO DR AGUAYO TO VERIFY DOSING OF POTASSIUM THIS AM. HE STATES HE ONLY WANTS 40MEQ THIS AM WITH BREAKFAST GIVEN. ALSO BP SOFT THROUGH NIGHT METOPROLOL HELD LAST NIGHT. DR AGUAYO WANTS LISINOPRIL LASIX AND METOPROLOL HELD FOR NOW AND RECHECK BP AND HR AT [address] FOR FOLLOW UP PLAN.
[2023-07-19 08:49] VITALS: BP 102/58
--- NOTE | 2023-07-19 12:35 | NUR ---
TELE CALLED AND STATED PT'S HR WAS IN 160S. CALL TO DR AGUAYO. NO NEW ORDERS AT THIS TIME. STATES THAT UNLESS PT IS SYMPTOMATIC TO CONTINUE CURRENT TREATMENT. CHECKED ON PT WHO STATED HE RECENTLY USED RESTROOM BUT DENIES NEW SYMPTOMS.
[2023-07-19 14:37] VITALS: BP 108/83
--- NOTE | 2023-07-19 17:08 | NUR ---
SHIFT SUMMARY PATIENT BLOOD PRESSURES SOFT THIS AM, DR AGUAYO MADE AWARE, INITIALLY LASIX, METOPROLOL, LISINOPRIL, SPIRONOLACTONE ALL HELD, RECHECH IN 1 HOUR ALLOWD METOPROLOL AND LASIX TO BE GIVEN PER DR HILL ORDERS, HOLDING OTHER BP LOWERING MEDICATIONS AT THIS TIME. NO OTHER ACUTE EVENTS DURING SHIFT. PATIENT USES CALL LIGHT APPROPRIATELY AND ABLE TO MAKE NEEDS KNOWN. HE IS INDEPENDENT IN THE ROOM.
[2023-07-19 18:36] VITALS: BP 97/76
--- NOTE | 2023-07-19 18:54 | NUR ---
CALL PLACED TO DR DIAZ, RE BP 97/76 HR 111, LM WITH INFORMATION AND REQUEST FOR DIRECTION OF ERVIN DUE AT 1800. WAITING SUPERVISOR ENDLESS TRACK VEHICLE BACK. WILL HAND OFF TO RN AT THIS TIME FOR SHIFT REPORT.
[2023-07-19 20:03] VITALS: BP 109/83
[2023-07-20 05:19] VITALS: BP 128/85
[2023-07-20 05:21] LABS: BASOPHILS ABSOLUTE AUTO 0.05 K/mm3 (0.00-0.23); BASOPHILS PERCENT AUTO 0 % (0-2); EOSINOPHILS ABSOLUTE AUTO 0.17 K/mm3 (0.00-0.68); EOSINOPHILS PERCENT AUTO 2 % (0-6); Hematocrit 46.4 % (37.0-53.0); Hemoglobin 15.4 g/dL (13.5-17.5); IMMATURE GRAN ABSOLUTE AUTO 0.03 K/mm3 (0.00-0.10); IMMATURE GRAN PERCENT AUTO 0 % (0-1); LYMPHOCYTES ABSOLUTE AUTO 3.14 K/mm3 (0.84-5.20); LYMPHOCYTES PERCENT AUTO 27 % (21-46); MONOCYTES ABSOLUTE AUTO 0.96 K/mm3 (0.16-1.47); MONOCYTES PERCENT AUTO 8 % (4-13); Mean Corpuscular HGB 28.4 pg (26.0-34.0); Mean Corpuscular HGB Conc 33.2 g/dL (31.5-36.5); Mean Corpuscular Volume 86 fL (80-100); Mean Platelet Volume 11.8 fL (9.1-12.4); NEUTROPHILS ABSOLUTE AUTO 7.15 K/mm3 (1.96-9.15); NEUTROPHILS PERCENT AUTO 62 % (41-73); Platelet Count 284 K/mm3 (150-400); RDW Coefficient Variation 13.7 % (11.7-14.2); RDW Standard Deviation 42.5 fL (35.1-46.3); Red Blood Cell Count 5.43 M/mm3 (4.30-5.90)
[2023-07-20 05:47] LABS: Albumin, Blood 3.5 g/dL (3.4-5.0); Anion Gap 7 mmol/L (6-16); Blood Urea Nitrogen 46 mg/dL (8-24); Bun/Creatinine Ratio 25.3 (12.0-20.0); CO2, Blood 27 mmol/L (21-32); Calcium, Blood 8.3 mg/dL (8.5-10.1); Chloride, Blood 105 mmol/L (98-108); Creatinine, Blood 1.82 mg/dL (0.60-1.20); Glomerular Filtration Rate 46 (60-); Glucose, Blood 115 mg/dL (70-99); Magnesium, Blood 1.9 mg/dL (1.6-2.4); Phosphorus, Blood 4.4 mg/dL (2.5-4.9); Sodium, Blood 139 mmol/L (136-145)
--- NOTE | 2023-07-20 06:11 | NUR ---
SHIFT SUMMARY PT REMAINS A&O X4, PLEASANT AND COOPERATIVE WITH CARE. VSS T/O; HRR REMAINS AFIB WITH RATE 100'S - 130'S PER SUPERVISOR FIBER LOCKING, WITH OCCASSIONAL TOUCHING INTO THE 150'S; MOSTLY SEEMS TO BE CORRELATED WHEN PT IS UP MOVING OR IN PAIN. PT ASYMPTOMATIC DURING EPISODES AND THROUGHOUT SHIFT. PT REMAINS ON RA, AFEBRILE. PT CONTINUES TO HAVE RECTAL PAIN RANGING FROM 4 - 7/10; MEDICAITONS PER [facility] WELL REST AND REPOSITIONING. PT AMBULATING TO RESTROOM AND IN HIS ROOM INDEPENDENLTY. NO ACUTE CHANGES WITH PT THIS SHIFT. PT VOIDING WELL AND TOLERATING PO INTAKE, FLUID RESTRICTION IN PLACE AND MET FOR NOC SHIFT. EDEMA BLE STILL PRESENT BUT IMPROVING. PT DOES REPORT WEEPING ON R LOWER EXREMITY. PT REPORTS STOOLS ARE STILL "SOFT, BUT STARTING TO FIRM SOME'. PT RESTED VERY LITTLE THIS SHIFT BUT DID GET SOME "NAPS". CALL LIGHT IN REACH. WILL UPDATE ONCOMING RN
[2023-07-20 07:13] VITALS: BP 109/77
[2023-07-20 10:32] VITALS: BP 111/95
--- NOTE | 2023-07-20 10:40 | NUR ---
Pt sitting up in chair after am meds stating feels lightheaded and dizzy. BP 11/95 HR afib 135. Tele called few minutes later stating HR 110-150s. Dr. Chaparro informed. Will continue to monitor.
[2023-07-20 15:16] VITALS: BP 129/104
--- NOTE | 2023-07-20 17:26 | NUR ---
SHIFT SUMMARY Pt remains A&Ox3 this shift. OOB independently from bed/chair to bathroom. Remains afib on the monitor. Resp even nonlabored on RA. Rectal fissure pain managed with current regime. Pt took shower this pm. No acute distress noted at this time. Will continue to monitor.
[2023-07-20 19:42] VITALS: BP 104/85
[2023-07-21 05:07] LABS: BASOPHILS ABSOLUTE AUTO 0.05 K/mm3 (0.00-0.23); BASOPHILS PERCENT AUTO 1 % (0-2); EOSINOPHILS PERCENT AUTO 2 % (0-6); Hematocrit 48.3 % (37.0-53.0); Hemoglobin 15.9 g/dL (13.5-17.5); IMMATURE GRAN ABSOLUTE AUTO 0.02 K/mm3 (0.00-0.10); IMMATURE GRAN PERCENT AUTO 0 % (0-1); LYMPHOCYTES ABSOLUTE AUTO 2.94 K/mm3 (0.84-5.20); LYMPHOCYTES PERCENT AUTO 30 % (21-46); MONOCYTES ABSOLUTE AUTO 0.86 K/mm3 (0.16-1.47); MONOCYTES PERCENT AUTO 9 % (4-13); Mean Corpuscular HGB 28.4 pg (26.0-34.0); Mean Corpuscular HGB Conc 32.9 g/dL (31.5-36.5); Mean Corpuscular Volume 86 fL (80-100); Mean Platelet Volume 11.7 fL (9.1-12.4); NEUTROPHILS ABSOLUTE AUTO 5.87 K/mm3 (1.96-9.15); NEUTROPHILS PERCENT AUTO 59 % (41-73); Platelet Count 238 K/mm3 (150-400); RDW Coefficient Variation 13.6 % (11.7-14.2); RDW Standard Deviation 43.4 fL (35.1-46.3); Red Blood Cell Count 5.59 M/mm3 (4.30-5.90); White Blood Cell Count 9.94 K/mm3 (4.00-11.30)
[2023-07-21 05:10] VITALS: BP 114/93
[2023-07-21 05:25] LABS: Calcium, Blood 8.2 mg/dL (8.5-10.1); Creatinine, Blood 1.73 mg/dL (0.60-1.20); Potassium, Blood 3.9 mmol/L (3.5-5.5)
[2023-07-21 08:20] VITALS: BP 122/104
--- NOTE | 2023-07-21 09:26 | NUR ---
PATIENT IS ALERT AND ORIENTED. VERY PLEASANT. PT STATES DID NOT SLEEP WELL BECAUSE "IT IS NOT HOME". PT RESTS BETWEEN BED AND CHAIR. PT USES CPAP WHEN IN BED. PT REMAINS ON HIS FLUID RESTRICTION, DID WELL. PT HAD NO BM THIS SHIFT.MEDICATED X2 FOR PAIN IN THE RECTAL AREA WITH PO DILAUDID WITH MODERATE RELIEF.
[2023-07-21 16:50] VITALS: BP 103/79
--- NOTE | 2023-07-21 17:11 | NUR ---
SHIFT SUMMARY Pt remains A&Ox3 this shift. Pain managed with current regime. BM loose, pt provides own hygiene after BM. Ambulates independently to bathroom. No change with RLE redness. Tele remains afib. Meds given as ordered.
[2023-07-21 17:20] VITALS: BP 120/98
[2023-07-21 19:38] VITALS: BP 111/100
[2023-07-21 23:00] VITALS: BP 124/94
[2023-07-22 04:29] VITALS: BP 126/85
--- NOTE | 2023-07-22 04:33 | NUR ---
SHIFT SUMMARY: PT IS ALERT AND ORIENTED. PT IS CALM AND COOPERATIVE WITH CARE. PT CALLS APPROPRIATELY. PT IS INDEPENDENT IN THE ROOM. PT REPORTS PAIN ON SEVERAL OCCASIONS, MEDICATING PER EMAR. PT DENIES NAUSEA, VOMITING, AND SOB. PT SLEPT MUCH OF THE NIGHT WHEN NOT DISTURBED. BED IN LOW POSITION, CALL LIGHT WITHIN REACH. WILL CONTINUE TO MONITOR AND REPORT TO DAY NURSE.
[2023-07-22 06:09] LABS: HEMOGLOBIN A1C 6.2 % (4.8-5.6)
[2023-07-22 06:29] LABS: Bun/Creatinine Ratio 22.4 (12.0-20.0); Calcium, Blood 8.6 mg/dL (8.5-10.1); Creatinine, Blood 1.7 mg/dL (0.60-1.20); Potassium, Blood 3.3 mmol/L (3.5-5.5)
[2023-07-22 07:44] VITALS: BP 130/86
[2023-07-22 14:36] VITALS: BP 100/89
--- NOTE | 2023-07-22 18:22 | NUR ---
SHIFT SUMMARY; PATIENT WAS MEDICATED X 2 FOR SEVERE PAIN. HE IS INDPENDANT IN ROOM. TAKES SHOWER TODAY. HE IS AO X 4. USES CALL LIGHT APPROPRIATELY. B/P THIS AFTERNOON IS SOFT.PATIENT IS NOT SYMPTOMATIC. WILL REMAIN AVAILABLE FOR THIS PATIENT FOR ANY WANTS OR CONCERNS UNTIL REPORT AND HAND OFF AT SHIFT CHANGE.
--- NOTE | 2023-07-22 19:18 | NUR ---
RECEIVED BEDSIDE REPORT FROM DAYSAKFT RN. PT LYING ON HIS RIGHT SIDE. ON RA. WEARS CPAP AT HS. SALINE LOCKED. NO NEEDS AT THIS TIME. TELE IN PLACE. AFIB DURING HI. WILL CONTINUE TO PROVIDE CARE T/O SHIFT. CALL LT IN REACH.
[2023-07-22 19:54] VITALS: BP 143/88
--- NOTE | 2023-07-23 00:20 | NUR ---
PT A&0X4 ADLIB IN ROOM, BLE EDEMOUS +3 W SCATTERED HEALING SCABS TO SHINS, PT ABDOMEN FOLD IS FIRM WITH OBSERVABLE TISSUE DISCOLORIZATION, SCROTAL AREA IS RED BLANCHABLE TO TOUCH TENDER POWDER APPLIED IN FOLDS AFTER DRYING, APPLIED MEDICATIONS TO RECTAL AREA PT REPORT SEVER PAIN,PT ON TELE AFIB 107, LUNGS ARE DIMINISHED T/O DENIES SOB, HEALING SCAB TO MEDIAL POSTERIOR MIDDLE BACK PT STATES INABILITY TO DRY SELF AFTER SHOWERS COMPELTELY, PT REPORTS PAIN WITH BOWEL MOVEMENTS "PAIN NOT PRESSURE", 7/10W MEDICATED PER EMAR, BED LOWERED CALL RED WITHIN REACH WILL CONITNUE TO MONITOR.
--- NOTE | 2023-07-23 03:45 | NUR ---
ASSUMED CARE OF PT.
[2023-07-23 04:40] VITALS: BP 107/81
--- NOTE | 2023-07-23 04:40 | NUR ---
SHIFT SUMMARY: A/O. INDEP IN RM. USES CALL LT AND STATES NEEDS APPROPRIATELY. ON RA. USES CPAP AT BEDTIME. AFIB ON TELE AT 110. 24 HR FLUID RESTRICTION OF 1500. 2 MG PO DILAUDID GIVEN FOR RECTUM PAIN AT 0230. FISSURE SORE NEAR ANUS IMPROVING WITH SCHEDULED OINTMENT TREATMENT. SALINE LOCKED. NO ACUTE CHANGES. WILL CONTINUE TO PROVIDE CARE UNTIL SHIFT REPORT TO ONCOMING NURSE.
[2023-07-23 05:44] LABS: BASOPHILS ABSOLUTE AUTO 0.04 K/mm3 (0.00-0.23); BASOPHILS PERCENT AUTO 0 % (0-2); EOSINOPHILS ABSOLUTE AUTO 0.19 K/mm3 (0.00-0.68); EOSINOPHILS PERCENT AUTO 2 % (0-6); Hematocrit 43.6 % (37.0-53.0); Hemoglobin 14.1 g/dL (13.5-17.5); IMMATURE GRAN ABSOLUTE AUTO 0.03 K/mm3 (0.00-0.10); IMMATURE GRAN PERCENT AUTO 0 % (0-1); LYMPHOCYTES ABSOLUTE AUTO 1.95 K/mm3 (0.84-5.20); LYMPHOCYTES PERCENT AUTO 21 % (21-46); MONOCYTES ABSOLUTE AUTO 0.84 K/mm3 (0.16-1.47); MONOCYTES PERCENT AUTO 9 % (4-13); Mean Corpuscular HGB 28.1 pg (26.0-34.0); Mean Corpuscular HGB Conc 32.3 g/dL (31.5-36.5); Mean Corpuscular Volume 87 fL (80-100); Mean Platelet Volume 12.2 fL (9.1-12.4); NEUTROPHILS ABSOLUTE AUTO 6.29 K/mm3 (1.96-9.15); NEUTROPHILS PERCENT AUTO 67 % (41-73); Platelet Count 201 K/mm3 (150-400); RDW Coefficient Variation 13.7 % (11.7-14.2); RDW Standard Deviation 43.6 fL (35.1-46.3); Red Blood Cell Count 5.02 M/mm3 (4.30-5.90); White Blood Cell Count 9.34 K/mm3 (4.00-11.30)
[2023-07-23 06:09] LABS: Magnesium, Blood 1.8 mg/dL (1.6-2.4)
[2023-07-23 06:10] LABS: Albumin, Blood 3.1 g/dL (3.4-5.0); Anion Gap 5 mmol/L (6-16); Blood Urea Nitrogen 41 mg/dL (8-24); Bun/Creatinine Ratio 20.4 (12.0-20.0); CO2, Blood 31 mmol/L (21-32); Calcium, Blood 8.3 mg/dL (8.5-10.1); Chloride, Blood 106 mmol/L (98-108); Creatinine, Blood 2.01 mg/dL (0.60-1.20); Glomerular Filtration Rate 41 (60-); Glucose, Blood 103 mg/dL (70-99); Phosphorus, Blood 4.3 mg/dL (2.5-4.9); Potassium, Blood 3.2 mmol/L (3.5-5.5); Sodium, Blood 142 mmol/L (136-145)
[2023-07-23 08:24] VITALS: BP 117/90
--- NOTE | 2023-07-23 09:00 | NUR ---
pt sitting up in chair, a/ox4, pleasant and cooperative with care, follows commands well, request pain meds, lungs are dim t/o, on r/a, using cpap while asleep, hrirr, tele in place running afib per monitor, see strip, 3+ edema noted to b/l le, cap refill<3 sec, vs stable, afebrile, piv site is clear and patent, btx4, abd flat soft nontender, voids without diff, skin c/w/d, maew, up indep, waqas, call light in reach.
[2023-07-23 16:30] VITALS: BP 126/105
--- NOTE | 2023-07-23 18:06 | NUR ---
pt up indep in room, calls and makes needs known, uneventful day, no acute changes this shift. call light in reach.
[2023-07-23 19:18] VITALS: BP 131/100
[2023-07-24 03:35] VITALS: BP 141/125
[2023-07-24 03:37] VITALS: BP 114/101
[2023-07-24 06:03] LABS: Bun/Creatinine Ratio 19.2 (12.0-20.0); Calcium, Blood 8.2 mg/dL (8.5-10.1); Creatinine, Blood 1.93 mg/dL (0.60-1.20); Potassium, Blood 3.4 mmol/L (3.5-5.5)
--- NOTE | 2023-07-24 06:41 | NUR ---
Rn shift summary: Patient remains alert and oriented. Patient has been on his fluid restriction and is very compliant. Tele continues to show Afib with rate 115-130. HR does increase to 150's when active. Patient up in chair and in bed with CPAP as he is comfortable. Teaching done by Nino ONEILL in the evening, diet, diabetes, skin care. Patient medicated at 0330 with Oxy 10 mg with good relief. Back of legs red and warm, not cellulitis appearing yet. Possible DC home with girlfriend today.
[2023-07-24 07:21] VITALS: BP 123/90
--- NOTE | 2023-07-24 09:00 | NUR ---
pt sitting in a chair for breakfast, a/ox4, pleasant and cooperative with care, follows commands well, lungs are dim t/o, resp even and unlabored, no cough noted, hrirr, tele in place running afib per monitor, see strip, 3+ edema noted to b/l le, ppp+2, cap refill <3sec, vs stable, afebrile, iv site to lfa site is dixie and patent, btx4, abd large soft.. voids via toilet indep, skin is a bit pink to bl le, he states it's unchanged, alyson, waqas, call light in reach.
[2023-07-24] MEDS ORDERED: AMIODARONE HCL400 M2 PO (12:59)
[2023-07-24] MEDS ORDERED: Amiodarone HCl200 MG PO (13:00)
[2023-07-24] MEDS ORDERED: HURRICAINE ONE1 EACH MM (13:00)
[2023-07-24] MEDS ORDERED: METO50ER PO (13:01)
[2023-07-24] MEDS ORDERED: OXYC10ER PO (13:02)
[2023-07-24] MEDS ORDERED: MIRALAX17 GM PO (13:02)
[2023-07-24] MEDS ORDERED: METAMUCIL POWD798 GM PO (13:03)
[2023-07-24] MEDS ORDERED: TORSE20 PO (13:03)
[2023-07-24] MEDS ORDERED: XARELTO20 MG PO (13:03)
[2023-07-24] MEDS ORDERED: SENN187 PO (13:03)
[2023-07-24] MEDS ORDERED: CURAD PETROLEUM5 GM TOP (13:04)
[2023-07-24] MEDS ORDERED: NITRO-DUR (13:08)
--- NOTE | 2023-07-24 13:30 | NUR ---
pt has been discharged to home, iv removed intact, pt showered, meds applied as ordered, went over discharge instructions with him, he verbalized understanding, new medicationds were faxed to [facility], pt left via wheelchair with thermal engineer in attendence.
== END 2023-07-24 13:50 | disposition home or self-care (01) | DRG 308 ==
LOC: ER 16:43 → PCU 16:44 → MEDS 07-08 14:51 → PCU 07-08 14:52 → MEDS 07-18 16:42
PROVIDERS: Family Medicine; Hospitalist; Internal Medicine; Nurse Practitioner Acute Care; Physician Assistant; Student in an Organized Health Care Education/Training Program; ADMIT Internal Medicine
PROC: 5A09457 Assistance with Respiratory Ventilation, 24-96 Consecutive Hours, Continuous Positive Airway Pressure (ICD-10-PCS; principal; 2023-07-07)
DX: I48.19 Other persistent atrial fibrillation (principal); I50.21 Acute systolic (congestive) heart failure; I13.0 Hypertensive heart and chronic kidney disease with heart failure and stage 1 through stage 4 chronic kidney disease, or unspecified chronic kidney disease; N17.9 Acute kidney failure, unspecified; Z68.45 Body mass index [BMI] 70 or greater, adult; I42.8 Other cardiomyopathies; E86.0 Dehydration; E87.6 Hypokalemia; E66.01 Morbid (severe) obesity due to excess calories; E78.5 Hyperlipidemia, unspecified; F32.A Depression, unspecified; G47.33 Obstructive sleep apnea (adult) (pediatric); N18.30 Chronic kidney disease, stage 3 unspecified; K52.9 Noninfective gastroenteritis and colitis, unspecified; I95.9 Hypotension, unspecified; T50.2X5A Adverse effect of carbonic-anhydrase inhibitors, benzothiadiazides and other diuretics, initial encounter; K60.2 Anal fissure, unspecified; D72.829 Elevated white blood cell count, unspecified; Z71.3 Dietary counseling and surveillance; Z79.811 Long term (current) use of aromatase inhibitors; Z79.899 Other long term (current) drug therapy; F17.210 Nicotine dependence, cigarettes, uncomplicated; Z79.01 Long term (current) use of anticoagulants; Z11.52 Encounter for screening for COVID-19
CPT/HCPCS: 0241U; 36415; 71045; 76770; 80048; 80053; 80069; 80162; 81003; 82274; 83036; 83497; 83735; 83880; 84132; 84145; 84443; 84484; 85025; 85027; 85379; 86140; 87507; 93005; 93010; 94660; 94760; 94762; 96361; 96365; 96366; 96368; 96375; 96376; 99285-25; A9270; C8929; J0282; J1160; J1170; J1940; J2405; J3010; J3470; J3475; J3480; J7030; J7050; J7060; Q9957

== ENCOUNTER 2023-08-22 20:18 | Inpatient (IN) | payer OTHER ==
[~2023-08-22] VITALS: Ht 180.3 cm; Wt 198.9 kg
[~2023-08-22 20:18] MED LIST changes: +AMIODARONE HCL400 M2 PO; +AMLO10 PO; +Amiodarone HCl200 MG PO; +CITALOPRAM HBR10 MG PO; +CURAD PETROLEUM5 GM TOP; +HURRICAINE ONE1 EACH MM; +HYDCHL50 PO; +METAMUCIL POWD798 GM PO; +METO50ER PO; +MIRALAX17 GM PO; +NITRO-DUR; +OXYC10ER PO; +SENN187 PO; +TORSE20 PO
[2023-08-22 20:42] LABS: BASOPHILS ABSOLUTE AUTO 0.04 K/mm3 (0.00-0.23); BASOPHILS PERCENT AUTO 0 % (0-2); EOSINOPHILS ABSOLUTE AUTO 0.11 K/mm3 (0.00-0.68); EOSINOPHILS PERCENT AUTO 1 % (0-6); Hematocrit 46.8 % (37.0-53.0); Hemoglobin 15.7 g/dL (13.5-17.5); IMMATURE GRAN ABSOLUTE AUTO 0.02 K/mm3 (0.00-0.10); IMMATURE GRAN PERCENT AUTO 0 % (0-1); LYMPHOCYTES ABSOLUTE AUTO 2.42 K/mm3 (0.84-5.20); LYMPHOCYTES PERCENT AUTO 24 % (21-46); MONOCYTES ABSOLUTE AUTO 0.89 K/mm3 (0.16-1.47); MONOCYTES PERCENT AUTO 9 % (4-13); Mean Corpuscular HGB 28.4 pg (26.0-34.0); Mean Corpuscular HGB Conc 33.5 g/dL (31.5-36.5); Mean Corpuscular Volume 85 fL (80-100); Mean Platelet Volume 11.7 fL (9.1-12.4); NEUTROPHILS ABSOLUTE AUTO 6.52 K/mm3 (1.96-9.15); NEUTROPHILS PERCENT AUTO 65 % (41-73); Platelet Count 202 K/mm3 (150-400); RDW Coefficient Variation 17.7 % (11.7-14.2); RDW Standard Deviation 51.4 fL (35.1-46.3); Red Blood Cell Count 5.52 M/mm3 (4.30-5.90)
[2023-08-22] MEDS ORDERED: Diltiazem HCl 5 MG / ML 5ML Vial IV ONE (20:55)
[2023-08-22] MEDS ORDERED: dilTIAZem HCL 125 MG in Dextrose 5% 100 ML IV SCH (20:55)
[2023-08-22 21:03] LABS: Albumin, Blood 3.1 g/dL (3.4-5.0); Albumin/Globulin Ratio 0.9 (0.8-1.8); Bilirubin, Total 1.1 mg/dL (0.1-1.0); Bun/Creatinine Ratio 22.1 (12.0-20.0); Calcium, Blood 8.1 mg/dL (8.5-10.1); Creatinine, Blood 3.44 mg/dL (0.60-1.20); Globulin, Blood 3.3 g/dL (2.2-4.0); Potassium, Blood 3.4 mmol/L (3.5-5.5); Total Protein, Blood 6.4 g/dL (6.4-8.2)
[2023-08-22] MEDS ORDERED: Furosemide 10 MG/ML 4ML Vial IV ONE (21:30)
[2023-08-22] MEDS ORDERED: Potassium Chloride 20 MEQ TabCR PO ONE (21:40)
[2023-08-22] MEDS ORDERED: FLU VACC QS2023-24(6MOS UP)/PF 60 MCG/0.5 ML SYRINGE IM ONE (22:40)
[2023-08-22] MEDS ORDERED: Acetaminophen 325 MG TABLET PO PRN (22:40)
[2023-08-22] MEDS ORDERED: Magnesium Hydroxide Conc 10 ML UDC PO PRN (22:40)
[2023-08-22] MEDS ORDERED: Potassium Chloride 20 MEQ/15 ML UDC PO SCH (23:00)
[2023-08-23] VITALS (12 sets, daily range): BP systolic 101–123; BP diastolic 79–100
[2023-08-23] MEDS ORDERED: Metoprolol Succinate 50 MG TABCR PO SCH (01:10)
[2023-08-23] MEDS ORDERED: Miconazole Nitrate 2% 85 GM PWD TOP PRN (04:00)
[2023-08-23 05:17] LABS: Albumin/Globulin Ratio 0.9 (0.8-1.8); Bilirubin, Total 1.5 mg/dL (0.1-1.0); Bun/Creatinine Ratio 22.6 (12.0-20.0); Calcium, Blood 8.3 mg/dL (8.5-10.1); Creatinine, Blood 3.32 mg/dL (0.60-1.20); Globulin, Blood 3.3 g/dL (2.2-4.0); Potassium, Blood 3.1 mmol/L (3.5-5.5); Total Protein, Blood 6.3 g/dL (6.4-8.2)
--- NOTE | 2023-08-23 06:05 | NUR ---
SHIFT SUMMARY REPORT RECIEVED FROM ER NURSE. PATIENT ARRIVES TO PCU 04 AROUND 0000, ABLE TO STAND AND MOVE SELF TO BED INDEPENDENTLY. PATIENT ALERT AND ORIENTED x4, ABLE TO MAKE NEEDS KNOWN TO STAFF. ANSWERING QUESTIONS APPROPRIATELY. BP STABLE. TELE READING AFIB 100-110S. CARDIZEM GTT INFUSING PER EMAR, SEE FLOWSHEET FOR TITRATIONS. PATIENT ON RA WHILE AWAKE, USING CPAP WHILE SLEEPING, SPO2 >90%. PATIENT AMBULATING INTO BATHROOM AND AROUND ROOM INDEPENDENTLY, ADEQUTE OUTPUT DURING THE NIGHT. NO OTHER CHANGES, WILL REPORT TO DAY SHIFT RN.
[2023-08-23] MEDS ORDERED: Potassium Chloride 20 MEQ TabCR PO ONE (07:50)
[2023-08-23] MEDS ORDERED: Empagliflozin 10 MG TAB PO SCH (09:00)
[2023-08-23] MEDS ORDERED: Metoprolol Tartrate 50 MG Tab PO SCH (09:00)
[2023-08-23] MEDS ORDERED: Potassium Chloride 20 MEQ TabCR PO SCH (09:00)
[2023-08-23] MEDS ORDERED: Lisinopril 10 MG Tab PO SCH (09:00)
[2023-08-23] MEDS ORDERED: Furosemide 10 MG / ML 2ML Vial IV SCH (09:00)
[2023-08-23] MEDS ORDERED: Amiodarone HCl 200 MG Tab PO SCH (09:00)
--- NOTE | 2023-08-23 09:07 | NUR ---
CARE NOTE PT AMBULATED INDEPENDENTLY TO BATHROOM AND REPORTED FEELING AN INCREASE IN SOB WELL LIGHTHEADEDNESS/DIZINESS. HE DENIED FEELINGS OF CHEST PAIN/PRESSURE. HR NOTED TO BE IN 140'S W/ EXERTION BUT IS NOW 110'S W/ REST. HE WAS EDUCATED TO CALL STAFF TO AMBULATE TO BATHROOM DUE TO FEELINGS OF LIGHTHEADEDNESS/DIZZINESS.
[2023-08-23] MEDS ORDERED: Ondansetron HCl 2 MG / ML 2ML Vial IV PRN (14:15)
--- NOTE | 2023-08-23 17:08 | NUR ---
CARE NOTE PT EDUCATED REGARDING URINAL USE WHEN IN BATHROOM TO MEASURE STRICT I&O'S BUT REPORTED DIFFICULTY DUE TO HAVING BOTH BM AND URINE VOID WHEN NEEDING TO VOID. HAT PLACED IN TOILET IN ORDER TO ATTEMPT STICT MEASUREMENTS OF I&O'S. PT NOW IN CHAIR, CALL LIGHT W/IN REACH.
--- NOTE | 2023-08-23 17:47 | NUR ---
SHIFT SUMMARY PT IS ALERT AND ORIENTED X 4, BP STABLE, HR HAS RANGED FROM 80'S-140'S PER TELE MONITORING. PT BECOMES SOB W/ MINIMAL EXERTION AND HR INCREASED TO 130'S-140 BUT DROPS BACK TO 80'S-110'S. CARDIZEM DRIP HAS BEEN INCREASED TO 10MG/HR BY THIS RN. THIS RN DISCUSSED PT'S HR W/ DR. CORTÉS THIS AFTERNOON. PT HAS DENIED FEELINGS OF CHEST PAIN/PRESSURE BUT REPORTED NAUSEA THAT WAS RELIEVED W/ ZOFRAN. NO OTHER PAIN REPORTED. HE HAS BEEN INDEPENDENT TO BR BUT HAS FAILED TO USE URINAL DUE TO ALSO HAVING BM'S WHEN VOIDING. PT EDUCATED REGARDING I'S&O'S DUE TO BEING DIURESED. HE IS CURRENTLY SITTING UP IN RECLINER CHAIR. ALSO SEE EMAR MEDS FOR HR CONTROL. CALL LIGHT IS W/IN REACH.
[2023-08-23] MEDS ORDERED: Rivaroxaban 10 MG Tab PO SCH (18:00)
--- NOTE | 2023-08-23 21:18 | NUR ---
ASSUMPTION OF CARE AFTER RECEIVING REPORT FROM HARPAL ONEILL, THIS RN ASSUMED CARE AT APPROX 1915. PATIENT ALERT, SITTING IN CHAIR WATCHING TV DURING INITIAL ENCOUNTER. IS ALERT AND ORIENTED X4. ABLE TO COMMUNICATE NEEDS EFFECTIVELY, RECEPTIVE TO EDUCATION. TELEMETRY SHOWING AFIB 80's-140's. MOSTLY ASYMPTOMATIC WITH INCREASES, REPORTS MILD SHORTNESS OF BREATH WITH MOBILITY. REPORTS POSITIONAL CHEST PAIN, PRESSURE THAT COMES AND GOES, IS WORSE WHILE LEANING FORWARD. NONRADIATING. CARDIZEM GTT INFUSING AT 10MG/HR. PO METOPROLOL ADMINISTERED PER EMAR. BP STABLE. IS ON ROOM AIR WHILE AWAKE, SATS >90%. USES CPAP WHILE SLEEPING, IS ABLE TO INDEPENDENTLY MANAGE DEVICE. IS INDEPENDENT WITH ADL's, CALLS APPROPRIATELY FOR STAND BY ASSIST NEEDED. CALL LIGHT IN REACH.
[2023-08-24] VITALS (9 sets, daily range): BP systolic 94–129; BP diastolic 62–96
[2023-08-24 05:09] LABS: Albumin, Blood 3.1 g/dL (3.4-5.0); Anion Gap 11 mmol/L (6-16); Blood Urea Nitrogen 77 mg/dL (8-24); Bun/Creatinine Ratio 22.6 (12.0-20.0); CO2, Blood 22 mmol/L (21-32); Calcium, Blood 8.5 mg/dL (8.5-10.1); Chloride, Blood 105 mmol/L (98-108); Creatinine, Blood 3.41 mg/dL (0.60-1.20); Glomerular Filtration Rate 22 (60-); Glucose, Blood 126 mg/dL (70-99); Magnesium, Blood 2.2 mg/dL (1.6-2.4); Phosphorus, Blood 6.1 mg/dL (2.5-4.9); Potassium, Blood 3.3 mmol/L (3.5-5.5); Sodium, Blood 138 mmol/L (136-145); Thyroxine (T4) 8.3 ug/dL (4.5-12.1)
--- NOTE | 2023-08-24 05:35 | NUR ---
SHIFT SUMMARY NO ACUTE CHANGES SINCE ASSSUMPTION OF CARE NOTE. PATIENT SLEPT INTERMITTENTLY THROUGHOUT SHIFT, EASILY AROUSABLE TO VERBAL STIMULI. INDEPENDENT WITH ADLs AND MOBILITY. SHOWER PERFORMED THIS SHIFT. TELEMETRY SHOWING AFIB 90s-110s. BP SOFT, SBP 90s-110s. MAP >65. RATE INCREASE TO 140s-160s, ESPECIALLY WITH MOBILITY. REMAINS MOSTLY ASYMPTOMATIC OF INCREASES, MILD SHORTNESS OF BREATH AND REPORT OF MILD LIGHTHEADEDNESS WITH INCREASES >140. DESCRIBES INTERMITTENT CHEST PRESSURE A "FULLNESS" THAT WORSENS WITH EATING OR DRINKING. CARDIZEM GTT INFUSING PER EMAR AT 10MG/HR. REMAINS ON ROOM AIR, SATS >90%. VOIDING. X1 BM THIS SHIFT. CALL LIGHT WITHIN REACH. WILL REPORT TO ONCOMING RN.
[2023-08-24] MEDS ORDERED: Potassium Chloride 20 MEQ TabCR PO ONE (15:00)
--- NOTE | 2023-08-24 17:56 | NUR ---
SHIFT SUMMARY; ASSUMED CARE AT 0700. A/A/OX4. PLEASANT AND COOPERATIVE WITH CARE. INDEPENDANT IN ROOM. CARDIZEM INFUSING AT 10ML/HR, AFIB 100-120. VSS, NO ACUTE CHANGES DURING SHIFT, WILL CONTINUE TO MONITOR AND TREAT UNTIL CHANGE OF SHIFT.
--- NOTE | 2023-08-24 20:38 | NUR ---
ASSUMPTION OF CARE AFTER RECEIVING REPORT FROM ERIBERTO ONEILL, THIS RN ASSUMED CARE AT APPROX 1915. PATIENT ALERT, SITTING IN RECLINER DURING INITIAL ENCOUNTER. IS ALERT AND ORIENTED X4. COOPERATIVE WITH CARE, RECEPTIVE TO EDUCATION. REPORTING FEELING TIRED EXPERIENCED DIFFICULTY SLEEPING LAST NIGHT, PLAN TO CLUSTER CARE ABLE TO PROMOTE GREATER PERIODS OF REST. TELEMETRY SHOWING AFIB 90s-120s WHILE AT REST. RATE INCREASE TO 130s-140s WITH OR WITHOUT ACTIVITY. CARDIZEM GTT INFUSING AT 10MG/HR. SCHEDULED PO METOPROLOL ADMINISTERED PER EMAR. BP STABLE, SBP 120s. MAP >65. REPORTS INTERMITTENT CHEST PRESSURE, NOT SHARP, NONRADIATING. ON ROOM AIR WHILE AWAKE, SATS >90%. USES CPAP WHILE SLEEPING, ABLE TO MANAGE DEVICE INDEPENDENTLY. EXPERIENCES MILD SHORTNESS OF BREATH WITH MOBILITY, EASES AT REST. INDEPENDENT WITH ALL ADLs. CALLS APPROPRIATELY FOR ASSIST NEEDED. CALL LIGHT IN REACH.
[2023-08-25] VITALS (9 sets, daily range): BP systolic 92–128; BP diastolic 68–94
--- NOTE | 2023-08-25 05:12 | NUR ---
SHIFT SUMMARY NO ACUTE CHANGES SINCE ASSUMPTION OF CARE NOTE. PATIENT SLEPT INTERMITTENTLY THROUGHOUT SHIFT, EASILY AROUSABLE TO VERBAL STIMULI. REMAINS INDEPENDENT IN ROOM AND WITH ADLs. TELEMETRY SHOWING AFIB 80s-110s. CARDIZEM GTT TITRATED DOWN TO 5MG/HR. BP STABLE, SBP 90-120s. MAP >65. REMAINS ON ROOM AIR WHILE AWAKE, SATS >90%. INDEPENDENT WITH CPAP WHILE SLEEPING. VOIDING. NO BM THIS SHIFT. CALL LIGHT IN REACH. WILL REPORT TO ONCOMING RN.
[2023-08-25 06:40] LABS: BASOPHILS ABSOLUTE AUTO 0.04 K/mm3 (0.00-0.23); BASOPHILS PERCENT AUTO 0 % (0-2); EOSINOPHILS ABSOLUTE AUTO 0.14 K/mm3 (0.00-0.68); EOSINOPHILS PERCENT AUTO 2 % (0-6); Hematocrit 45.5 % (37.0-53.0); Hemoglobin 15.1 g/dL (13.5-17.5); IMMATURE GRAN ABSOLUTE AUTO 0.02 K/mm3 (0.00-0.10); IMMATURE GRAN PERCENT AUTO 0 % (0-1); LYMPHOCYTES ABSOLUTE AUTO 1.93 K/mm3 (0.84-5.20); LYMPHOCYTES PERCENT AUTO 21 % (21-46); MONOCYTES PERCENT AUTO 8 % (4-13); Mean Corpuscular HGB 28.9 pg (26.0-34.0); Mean Corpuscular HGB Conc 33.2 g/dL (31.5-36.5); Mean Corpuscular Volume 87 fL (80-100); Mean Platelet Volume 11.3 fL (9.1-12.4); NEUTROPHILS ABSOLUTE AUTO 6.17 K/mm3 (1.96-9.15); NEUTROPHILS PERCENT AUTO 69 % (41-73); Platelet Count 195 K/mm3 (150-400); RDW Coefficient Variation 17.8 % (11.7-14.2); RDW Standard Deviation 53.3 fL (35.1-46.3); Red Blood Cell Count 5.22 M/mm3 (4.30-5.90)
[2023-08-25 07:01] LABS: Albumin, Blood 3.1 g/dL (3.4-5.0); Albumin/Globulin Ratio 0.9 (0.8-1.8); Bilirubin, Total 1.4 mg/dL (0.1-1.0); Bun/Creatinine Ratio 22.3 (12.0-20.0); Calcium, Blood 8.6 mg/dL (8.5-10.1); Creatinine, Blood 3.46 mg/dL (0.60-1.20); Globulin, Blood 3.4 g/dL (2.2-4.0); Magnesium, Blood 2.3 mg/dL (1.6-2.4); Phosphorus, Blood 5.7 mg/dL (2.5-4.9); Potassium, Blood 3.5 mmol/L (3.5-5.5); Total Protein, Blood 6.5 g/dL (6.4-8.2)
[2023-08-25] MEDS ORDERED: Psyllium 1 EA Pack PO SCH (09:00)
[2023-08-25] MEDS ORDERED: Furosemide 10 MG / ML 2ML Vial IV SCH (09:00)
--- NOTE | 2023-08-25 17:18 | NUR ---
END OF SHIFT PT A&O X4. SPO2 > 92% ON RA. PT REPORTS SOB W/ AMBULATION. MONITOR SHOWING AFIB, HR 90s-130s. CARDIZEM GTT INFUSING @ 5 MG/HR. BP SOFT. PT REPORTING LIGHTHEADEDNESS W/ SITTING UP "TOO FAST", BUT REPORTS IMPROVEMENT THEREAFTER. VSS. PT REPORTING BLE SWELLING "NOT REALLY CHANGING." PT COMPLIANT W/ FLUID RESTRICTION & ELEVATING BLE INTERMITTENTLY T/O DAY.
[2023-08-25] MEDS ORDERED: Furosemide 10 MG/ML 4ML Vial IV SCH (18:00)
--- NOTE | 2023-08-25 22:21 | NUR ---
ASSUMPTION OF CARE THIS RN ASSUMED CARE AT APPROX 1915. PATIENT IS ALERT AND ORIENTED X4. SITTING IN RECLINER CHAIR WATCHING TV. IS INDEPENDENT IN ROOM AND WITH ALL ADLs. TELEMETRY SHOWING AFIB 80s-130s. INCREASES TO 130s-140s WITH ACTIVITY. CARDIZEM GTT INFUSING AT 5MG/HR. BP SOFT, SBP 90s. MAP >65. DENIES CHEST PAIN, PRESSURE. IS ON ROOM AIR, SATS >90%. USES CPAP WHILE SLEEPING, IS INDEPENDENT WITH DEVICE. DENIES SHORTNESS OF BREATH AT REST, EXPERIENCES MILD TACHYPNEA WITH MOBILITY. CALL LIGHT IN REACH.
[2023-08-26 03:08] VITALS: BP 106/79
--- NOTE | 2023-08-26 04:29 | NUR ---
SHIFT SUMMARY NO ACUTE CHANGES SINCE ASSUMPTION OF CARE NOTE. NO MENTATION CHANGES, REMAINS INDEPENDENT IN ROOM AND WITH ALL ADLs. VOIDING. COMPLIANT WITH FLUID RESTRICTION. TELEMETRY SHOWING AFIB, RATE 80s-130s. INCREASE TO 130s-140s WITH MOBILITY. CARDZEM GTT INFUSING AT 5MG/HR. BP STABLE, SBP 90s-110s. MAP >65. REMAINS ON ROOM AIR WHILE AWAKE, CPAP USE WHILE SLEEPING. SATS >90%. DENIES SHORTNESS OF BREATH AT REST, REPORTS SOME SHORTNESS OF BREATH WITH MOBILITY. CALL LIGHT IN REACH. WILL REPORT TO ONCOMING RN.
[2023-08-26 05:10] LABS: Bun/Creatinine Ratio 20.9 (12.0-20.0); Calcium, Blood 8.7 mg/dL (8.5-10.1); Creatinine, Blood 3.44 mg/dL (0.60-1.20); Potassium, Blood 3.3 mmol/L (3.5-5.5)
[2023-08-26 08:38] VITALS: BP 118/77
[2023-08-26] MEDS ORDERED: Potassium Chloride 20 MEQ TabCR PO ONE (09:00)
[2023-08-26 11:43] VITALS: BP 103/84
[2023-08-26] MEDS ORDERED: Furosemide 10 MG/ML 10ML Vial IV SCH (14:00)
[2023-08-26] MEDS ORDERED: Hydrocortisone 2.5% Cream 30 gm Tube PR SCH (16:00)
[2023-08-26 16:28] VITALS: BP 111/93
[2023-08-26] MEDS ORDERED: Potassium Chloride 10 Meq Tablet SA PO SCH (17:30)
[2023-08-26] MEDS ORDERED: Furosemide 10 MG/ML 4ML Vial IV SCH (18:00)
--- NOTE | 2023-08-26 18:25 | NUR ---
END OF SHIFT PT CONTINUES TO BE A&O X4. VSS. SPO2 > 92% ON RA. MONITOR SHOWING AFIB, HR 90s-110s W/ OCCASSIONAL INCREASE TO 120s-130s. CARDIZEM GTT INFUSING @ 5 MG/HR. BLE REMAINS SWOLLEN. PT TOLERATING INCREASE IN IV LASIX GIVEN PER EMAR.
[2023-08-26 20:08] VITALS: BP 118/66
[2023-08-27 00:02] VITALS: BP 105/81
[2023-08-27 04:00] VITALS: BP 140/115
[2023-08-27 05:09] LABS: Calcium, Blood 8.2 mg/dL (8.5-10.1); Creatinine, Blood 3.53 mg/dL (0.60-1.20); Potassium, Blood 3.6 mmol/L (3.5-5.5)
--- NOTE | 2023-08-27 05:12 | NUR ---
SHIFT SUMMARY ASSUMED CARE OF PT AT 1900. PT IS A/OX4. HEART SOUNDS REGULAR. LUNG SOUNDS DIMINISHED. PT USED CPAP AT [facility] BUT ONLY SLEPT ABOUT 2 HOURS DUE TO "BED BEING UNCOMFORTABLE". PT CONTINUES TO BE TITRATED ON DILT GTT. PT FOLLOWING FLUID RESTRICTION AND STRICT I/O MEASURING. NO NEW COMPLAINTS.
[2023-08-27 07:25] VITALS: BP 107/90
[2023-08-27 08:54] LABS: Phosphorus, Blood 5.3 mg/dL (2.5-4.9)
[2023-08-27 11:39] VITALS: BP 113/99
[2023-08-27 15:04] VITALS: BP 94/68
--- NOTE | 2023-08-27 17:56 | NUR ---
END OF SHIFT PT A&O X4. VSS. SPO2 > 92% ON RA. CPAP AT BEDSIDE, PT WORE FOR NAP THIS AM. MONITOR SHOWING AFIB, HR 80s-130s. CARDIZEM GTT INFUSING @ 5 OR 10 MG/HR THIS SHIFT, CURRENTLY INFUSING @ 5. PT SITTING UP IN CHAIR MUCH OF DAY, ABLE TO STAND & AMBULATE INDEPENDENTLY. BLE CONTINUE TO BE SWOLLEN.
[2023-08-27 19:32] VITALS: BP 121/84
[2023-08-28] VITALS (8 sets, daily range): BP systolic 97–132; BP diastolic 78–111
--- NOTE | 2023-08-28 05:12 | NUR ---
SHIFT SUMMARY NO ACUTE CHANGES THIS SHIFT. AXO. AFIB 100'S - 130'S WITH DILTIAZEM GTT @ 10. BP STABLE, MILDLY SOFT BUT MAP >65. ON RA OR CPAP HS. CONTINENT. REMAINS ON FR 1500 WITH NEGATIVE FLUID BALANCE TONIGHT. LEGS CONTINUE WITH WEEPING WOUNDS BUT IMPROVING WITH CONTINUED DIURESIS. OTHERWISE, RESTING COMFORTABLY.
[2023-08-28 05:40] LABS: Bun/Creatinine Ratio 20.8 (12.0-20.0); Calcium, Blood 8.4 mg/dL (8.5-10.1); Creatinine, Blood 3.32 mg/dL (0.60-1.20); Potassium, Blood 3.6 mmol/L (3.5-5.5)
[2023-08-28] MEDS ORDERED: Metolazone 2.5 MG Tab PO SCH (10:00)
--- NOTE | 2023-08-28 10:08 | NUR ---
AM NOTE this rn assumed care at 0700. vital signs stable. tele afib 110s. patient is alert and oriented x4. perrla. independent in the room and uses call light appropriately and calls if needing assistance. patient denies chest pain/pressure, pain, or shortness of breath. patient did say he can become short of breath with activity. see shift assessment for further detials. md mario in to see patient and discussed plan of care. md bennett in to see patient and discussed plan of care. patient understands plan of care and agrees to the plan. continue to diuresis and get patient off of cardizem drip.
[2023-08-28 11:38] LABS: BASOPHILS ABSOLUTE AUTO 0.04 K/mm3 (0.00-0.23); BASOPHILS PERCENT AUTO 1 % (0-2); EOSINOPHILS ABSOLUTE AUTO 0.18 K/mm3 (0.00-0.68); EOSINOPHILS PERCENT AUTO 2 % (0-6); Hematocrit 46.5 % (37.0-53.0); Hemoglobin 14.9 g/dL (13.5-17.5); IMMATURE GRAN ABSOLUTE AUTO 0.02 K/mm3 (0.00-0.10); IMMATURE GRAN PERCENT AUTO 0 % (0-1); LYMPHOCYTES ABSOLUTE AUTO 1.87 K/mm3 (0.84-5.20); LYMPHOCYTES PERCENT AUTO 23 % (21-46); MONOCYTES ABSOLUTE AUTO 0.77 K/mm3 (0.16-1.47); MONOCYTES PERCENT AUTO 9 % (4-13); Mean Corpuscular HGB 28.2 pg (26.0-34.0); Mean Corpuscular Volume 88 fL (80-100); Mean Platelet Volume 11.7 fL (9.1-12.4); NEUTROPHILS ABSOLUTE AUTO 5.39 K/mm3 (1.96-9.15); NEUTROPHILS PERCENT AUTO 65 % (41-73); Platelet Count 182 K/mm3 (150-400); RDW Coefficient Variation 17.2 % (11.7-14.2); RDW Standard Deviation 54.3 fL (35.1-46.3); Red Blood Cell Count 5.29 M/mm3 (4.30-5.90); White Blood Cell Count 8.27 K/mm3 (4.00-11.30)
[2023-08-28 11:57] LABS: Magnesium, Blood 2.2 mg/dL (1.6-2.4)
--- NOTE | 2023-08-28 12:28 | NUR ---
"Spiritual Care Consult | Referred by Dr. Carolina Thompson Pt. is awake and sitting up in his chair. Pt. is pleasant. Facilitated a life review and began to establish rapport. Nurse Allison is present for much of the visit. Pt. displayed evidence of wanting to share some personal concerns when his lunch meal arrived. Pt. agreed to have this asset management analyst return later in the day. Pt. shook this asset management analyst's hand and verbalized gratitude for the spiritual care visit."
[2023-08-28 13:17] LABS: Source, Urine Clean Catch
[2023-08-28 13:22] LABS: Appearance, Urine Clear (Clear); Bilirubin, Urine Neg (Neg); Blood, Urine Neg (Neg); Color, Urine Yellow (P-Yellow); Glucose Qualitative, Urine Neg (Neg); Ketones, Urine Neg (Neg); Leukocyte Esterase, Urine Neg (Neg); Nitrite, Urine Neg (Neg); Protein, Urine Neg (Neg); Urobilinogen, Urine NORM (Normal)
[2023-08-28] MEDS ORDERED: Calcium Carbonate 500 MG Tab Chew PO SCH (17:30)
--- NOTE | 2023-08-28 18:07 | NUR ---
shift summary patient neuro remains unchanged. vital signs stable. tele afib 110-120. cardizem drip infusing at 5mls/hr, no changes. patient has had great output, see i&os. no acute changes.
[2023-08-28] MEDS ORDERED: Bumetanide 10 MG in NS 60 ML IV SCH (19:55)
[2023-08-28] MEDS ORDERED: Metolazone 5 MG Tab PO SCH (21:00)
[2023-08-28] MEDS ORDERED: Gabapentin 300 MG Cap PO SCH (21:00)
--- NOTE | 2023-08-28 21:44 | NUR ---
ASSUME CARE: PT WITH NO COMPLAINTS AT THE BEGINNING OF THE SHIFT, DR MATHEW AT THE BEDSIDE TALKING TO THE PT DURING SHIFT CHANGE, VITALS HRR REMAINED AFIB RANGING 110-150'S, SBP 113, SATS ABOVE 95% ON RA, AFEBRILE. HRR INCREASES WITH EXERTION AND AMBULATION UP TO 150'S, GOES BACK DOWN TO 110'S AT REST CARDIZEM GTT STILL AT 5MG/HR. PT REPORTED SOB WITH EXERTION DENIES CHEST PAIN/PRESSURE. DR AWAD PLACED AN ORDER FOR BUMEX GTT AND DC LASIX, PT WAS INFORMED OF THE PLAN AND PROVIDED SOME EDUCATION, PT GOT A LITTLE UPSET ABOUT IT, PT FEELS LIKE LASIX IS WORKING ON HIM NOW THAT HE PUT OUT 7OOMLS OF URINE OUTPUT FOR THE LAST 2 HRS AND REQUESTED TO TALK TO DR AWAD ABOUT IT BEFORE STARTING THE BUMEX GTT, THIS RN CALLED DR AWAD ORDER TO HOLD ON TO BUMEX UNTIL HE TALKS TO THE PT IN THE MORNING. PT WAS AGREEABLE WITH THE PLAN. SIGNIFICANT OTHER AT THE BEDSIDE AWARE OF THE PLAN WELL. PT HAS BEEN INDEPENDENT IN THE ROOM, NO OTHER ISSUES AT THIS TIME, CALL LIGHTS IN REACH WILL CONTINUE TO MONITOR
[2023-08-29] VITALS (9 sets, daily range): BP systolic 104–133; BP diastolic 79–105
[2023-08-29 05:18] LABS: Albumin, Blood 3.2 g/dL (3.4-5.0); Anion Gap 8 mmol/L (6-16); Blood Urea Nitrogen 69 mg/dL (8-24); Bun/Creatinine Ratio 21.4 (12.0-20.0); CO2, Blood 26 mmol/L (21-32); Chloride, Blood 107 mmol/L (98-108); Creatinine, Blood 3.22 mg/dL (0.60-1.20); Glomerular Filtration Rate 23 (60-); Glucose, Blood 98 mg/dL (70-99); Potassium, Blood 3.2 mmol/L (3.5-5.5); Sodium, Blood 141 mmol/L (136-145); Uric Acid, Blood 19.8 mg/dL (3.5-7.2)
--- NOTE | 2023-08-29 06:09 | NUR ---
PT SUMMARY: SEE PREVIOUS NOTE. NO ACUTE CHANGE SINCE LAST NOTE, CARDIZEM GTT INCREASED TO 10MG/HR PT HRR WAS SUSTAINING 110-150'S PT WAS MOSTLY AWAKE FOR THE SHIFT WORKING ON HIS LEGO CAR. PT PUT OUT MORE THAN 2L OF URINE OUTPUT FOR THE SHIFT. PT COMPLIANT WITH FLUID RESTRICTION. USES ONLY ICE CHIPS LAST NIGHT. VITALS HRR AFIB EVEN AT 10MG OF CARDIZEM HRR STILL TACHS UP TO 150'SMOSTLY ON JEY 90-110'S WHEN RESTING AND IS ASLEEP TELE REPORTED 5 BEATS RUN OF VTACH ASYMPTOMATIC AND FR TAN WAS AWARE. SOSIUM LEVEL DID GO UP TO 122. NO OTHER ISSUES REPORTED CALL LIGHTS IN REACH
[2023-08-29] MEDS ORDERED: Potassium Chloride 10 Meq Tablet SA PO SCH (08:30)
[2023-08-29] MEDS ORDERED: Metolazone 5 MG Tab PO SCH (09:00)
[2023-08-29] MEDS ORDERED: Digoxin 0.25 MG/ML 2ML Amp IV SCH (12:00)
--- NOTE | 2023-08-29 17:35 | NUR ---
SHIFT SUMMARY PT A&OX4. SP02>90% ON RA. PT STATES HE CAN "BREATHE DEEPER" THIS SHIFT. CPAP WHILE NAPPING THIS AFTERNOON. TELEMETRY SHOWS AFIB, HR 70'S-150'S. AVG 110'S. INCREASES W/ AMBULATION. 5 BEAT RUN OF VTACH. CARDIZEM INFUSING AT 10/HR. DIG LOADED THIS SHIFT. NEW IV PLACED. STARTED INFUSING BUMEX GTT AT 5/HR PER EMAR THIS AM. PT WITH INCREASED URINE OUTPUT, SEE I&O. UP TO BATHROOM INDEPENDENTLY. DENIES PAIN. PT ADHERED TO FR NO PROBLEM, ICE CHIPS T/O SHIFT. PT;S SON VISITED THIS AFTERNOON. PT CURRENTLY SITTING IN RECLINER, EATING DINNER. CALL LIGHT IN REACH.
[2023-08-30] VITALS (7 sets, daily range): BP systolic 107–146; BP diastolic 76–126
--- NOTE | 2023-08-30 00:22 | NUR ---
PT ALREADY HAS ATLEAST 2100MLS OF URINE OUTPUT WITHIN THE LAST 4 HRS, PT STARTED C/O BACK AND LEG CRAMPS AND FEELING WEAK, PT STILL ON BUMEX AT 5, CARDIZEM TITRATED DOWN TO 5MG/HR, HRR REMAINS AFIB RATE AT 70-100'S AT REST STILL TACHS UP TO 150'S WITH EXERTION, SBP 105-130'S, SATS ABOVE 95% ON RA, AFERILE. PT WITH ON AND OFF SLEEP DUE TO URGENCY OF URINATING, USES CPAP INDEPENDENTLY. DR AWAD CALLED AND MADE AWARE RECOMMENDED TO KEEP THE BUMEX GTT GOING LONG PT BLOOD PRESSURE TOLERATES, ORDERED LABS STAT. AWAITING FOR RESULT AT THIS TIME, PT NOW UP IN THE RECLINER CHAIR, NO ISSUES AT THIS TIME, CALL LIGHTS IN REACH WILL CONTINUE TO MONITOR
[2023-08-30 01:20] LABS: Albumin, Blood 3.3 g/dL (3.4-5.0); Anion Gap 5 mmol/L (6-16); Blood Urea Nitrogen 69 mg/dL (8-24); Bun/Creatinine Ratio 22.3 (12.0-20.0); CO2, Blood 32 mmol/L (21-32); Calcium, Blood 9.2 mg/dL (8.5-10.1); Chloride, Blood 104 mmol/L (98-108); Creatinine, Blood 3.09 mg/dL (0.60-1.20); Glomerular Filtration Rate 25 (60-); Glucose, Blood 139 mg/dL (70-99); Phosphorus, Blood 4.6 mg/dL (2.5-4.9); Potassium, Blood 3.3 mmol/L (3.5-5.5); Sodium, Blood 141 mmol/L (136-145)
[2023-08-30 04:27] LABS: Albumin, Blood 3.1 g/dL (3.4-5.0); Anion Gap 4 mmol/L (6-16); Blood Urea Nitrogen 71 mg/dL (8-24); Bun/Creatinine Ratio 22.8 (12.0-20.0); CO2, Blood 31 mmol/L (21-32); Calcium, Blood 8.9 mg/dL (8.5-10.1); Chloride, Blood 106 mmol/L (98-108); Creatinine, Blood 3.11 mg/dL (0.60-1.20); Glomerular Filtration Rate 24 (60-); Glucose, Blood 101 mg/dL (70-99); Potassium, Blood 3.1 mmol/L (3.5-5.5); Sodium, Blood 141 mmol/L (136-145)
[2023-08-30] MEDS ORDERED: Potassium Chloride 20 MEQ TabCR PO ONE (05:00)
--- NOTE | 2023-08-30 06:17 | NUR ---
PT SUMMARY: SEE PREVIOUS NOTES; NO ACUTE CHANGE SINCE LAST NOTE, REPEAT LABS DONE POTASSIUM LOW AT 3.1 PT WAS GIVEN EXTRA DOSE OF POTASSIUM 20MEQ ON TOP OF THE SCHEDULED ONES, PT HAS PUT OUT 2700MLS UO FOR THE SHIFT, BUMEX REMAINS INFUSING WELL CARDIZEM GTT AT 5MG/HR. HRR AFIB MOSTLY IN JEY 80-90'S AT REST STILL GOES UP TO 150'S WITH EXERTION/AMBULATION, SBP 110-130'S MAP >70, SATS ABOVE 95% ON RA, AFEBRILE. PT DENIES CHEST PAIN/PRESSURE STILL HAS SOME EPISODES OF CRAMP PAIN ON BACK AND LEGS GOES AWAY WITH STRETCHING. NO OTHER ISSUES AT THIS TIME, PT NOW UP IN THE CHAIR GETTING READY FOR BREAKFAST, PT HAS BEEN CALLING APPROPRIATELY, WILL REPORT TO ONCOMING SHIFT
[2023-08-30] MEDS ORDERED: Allopurinol 100 MG Tab PO SCH (17:00)
[2023-08-30] MEDS ORDERED: Potassium Chloride 10 Meq Tablet SA PO SCH (17:30)
--- NOTE | 2023-08-30 18:01 | NUR ---
SHIFT SUMMARY PT A&OX4. SP02>90% ON RA. TELEMETRY SHOWS AFIB, HR 80'S-150'S. INCREASES W/ AMBULATION. MEDICATIONS PER EMAR, CARDIZEM INFUSING AT 5. BUMEX INFUSING PER NEPHRO ORDERS AT 4. UP INDEPENDENTLY TO BATHROOM TO VOID. DENIES PAIN. PT DID C/O THIS SHIFT OF "FEELING LIKE LIGHTHEADED BUT NOT LIGHTHEADED." CALL PLACED TO MD XIONG. MD XIONG W/ ORDERS TO RECHECK POTASSIUM, SEE RESULTS. NEPHRO IN ROOM TO CONSULT THIS EVENING. PT FRIEND VISITED, PLAYED BOARD GAMES THIS AFTERNOON. PT CURRENTLY SITTING IN RECLINER, PUTTING TOGETHER A LEGO SET. CALL LIGHT IN REACH.
[2023-08-30 18:34] LABS: Calcium, Blood 9.4 mg/dL (8.5-10.1); Creatinine, Blood 3.18 mg/dL (0.60-1.20); Potassium, Blood 3.7 mmol/L (3.5-5.5)
--- NOTE | 2023-08-30 21:59 | NUR ---
ASSUMPTION OF CARE AFTER RECEIVING REPORT FROM FADY ONEILL, THIS RN ASSUMED CARE AT APPROX 1915. PATIENT IS ALERT AND ORIENTED X4. COOPERATIVE WITH CARE, RECEPTIVE TO EDUCATION. IS INDEPENDENT IN ROOM. CALLS FOR DEVICE, CORD MANAGEMENT NEEDED. COMMUNICATES NEEDS EFFECTIVELY. TELEMETRY SHOWING AFIB 80s-140s WITH INCREASES TO 150s WITH ACTIVITY. UP FREQUENTLY TO VOID DUE TO BUMEX GTT INFUSING AT 4/HR RECOMMENDED BY CLOCK REPAIRER. CARDIZEM GTT INFUSING AT 5/HR. BP STABLE, SBP 110's. DENIES CHEST PAIN, PRESSURE. IS ON ROOM AIR, SATs >90%. EXPERIENCES MILD DYSPNEA WITH MOBILITY. COMPLIANT WITH CPAP USE WHILE SLEEPING, MANAGES DEVICE INDEPENDENTLY. CALL LIGHT IN REACH.
[2023-08-31] VITALS (13 sets, daily range): BP systolic 97–129; BP diastolic 70–95
--- NOTE | 2023-08-31 05:21 | NUR ---
SHIFT SUMMARY NO ACUTE CHANGES SINCE ASSUMPTION OF CARE. PATIENT REMAINS INDEPENDENT IN ROOM. UP TO RESTROOM FREQUENTLY TO VOID. COMPLIANT WITH FLUID RESTRICTION. USES CALL LIGHT APPROPRIATELY. TELEMETRY SHOWING AFIB 80s-150s. RATE INCREASE WITH ACTIVITY. CARDIZEM GTT AT 5/HR. BUMEX GTT INFUSING AT 4/HR. BP STABLE, SBP 100s-110s. MAP >65. REMAINS ON ROOM AIR, SATs >90%. COMPLIANT WITH CPAP USE WHILE SLEEPING, MANAGES DEVICE INDEPENDENTLY. RESPIRATIONS EVEN, UNLABORED AT REST. EXPERIENCES MILD DYSPNEA WITH MOBILITY. NO BM THIS SHIFT. CALL LIGHT IN REACH. WILL REPORT TO ONCOMING RN.
[2023-08-31 06:48] LABS: Bun/Creatinine Ratio 23.5 (12.0-20.0); Calcium, Blood 9.7 mg/dL (8.5-10.1); Creatinine, Blood 3.06 mg/dL (0.60-1.20); Potassium, Blood 2.9 mmol/L (3.5-5.5)
[2023-08-31] MEDS ORDERED: Digoxin 0.125 MG Tab PO SCH (09:00)
[2023-08-31] MEDS ORDERED: Amiodarone HCl 200 MG Tab PO SCH (09:00)
--- NOTE | 2023-08-31 12:27 | NUR ---
Pt. is sitting up in his chair and had just been served lonch. Pt. welcomes my visit and rapport is re-established. Pt. displays evidence of being articulate, engaged, and aware. Pt. shows this programming equipment operator who of his amazing Lego creations. Facilitate a conversation about his emotional and spiritual status through this hospitalization. Pt. displays evidence of honesty and openness. Because Pts. meal had just been served, we agreed to have this programming equipment operator return this afternoon. Pt. verbalized gratitude for the spiritual care visit.
--- NOTE | 2023-08-31 16:40 | NUR ---
END OF SHIFT SUMMARY PT IS A&OX4, CALLS APPROPRAITELY, MAKES HIS NEEDS KNOWN, AND HAS BEEN IND IN THE ROOM. HE HAS BEEN ON RA WHILE AWAKE AND WHILE NAPPING HE IS COMPLIANT W/ HIS CPAP. HE DENIES SOB AND SP02 REMAINS >93%. ON TELE HE HAS BEEN AFIB 90'S-130'S AND HE IS ON A CARDIZEM AND BUMEX GTT PER CARDIOLOGY AND NEPHROLOGY. BUMEX GTT IS AT 4ML/HR PER PUBLICATION SPECIALIST. THE B2B SALES EXECUTIVE WOULD LIKE THE CARDIZEM GTT AT 5ML/HR BECAUSE THE PT IS RECIEVING AMIO, DIG, AND METOPROLOL. THE PT HAS DENIED ANY ANGINA OR CHEST PRESSURE TODAY. THE PT HAS HAD SOME C/O BLE NEUROPATHY AND IT IS PAINFUL TO TOUCH. HE IS RECIVING GABAPENTIN PER EMAR. HIS POTASSIUM WAS LOW THIS MORNING, HE IS RECIEVING SUPPLIMENTS TID. I TALKED TO DR. VELASQUEZ SHE WANTS TO SEE WHAT THIS EVENING REDRAW LOOKS LIKE BEFORE SHE ADDS ANY ADDITIONAL SUPPLIMENTS. NO ACUTE EVENTS. SEE NOTE FOR ANY UPDATES. FIRE IGNITION RISK HAS BEEN ASSESSED.
[2023-08-31 17:29] LABS: Bun/Creatinine Ratio 21.9 (12.0-20.0); Calcium, Blood 10.1 mg/dL (8.5-10.1); Creatinine, Blood 3.11 mg/dL (0.60-1.20); Potassium, Blood 3.3 mmol/L (3.5-5.5)
[2023-08-31] MEDS ORDERED: Bumetanide 10 MG in NS 60 ML IV SCH (19:00)
--- NOTE | 2023-08-31 22:07 | NUR ---
ASSUMPTION OF CARE AFTER RECEIVING REPORT FROM ANA ROSA ONEILL, THIS RN ASSUMED CARE AT APPROX 1915. PATIENT ALERT, SITTING UP IN CHAIR WATCHING TV. IS ALERT AND ORIENTED X4. COMMUNICATES NEEDS EFFECTIVELY. IS INDEPENDENT IN ROOM AND WITH ALL ADLs. TELEMETRY SHOWING AFIB 80s-140s. RATE INCREASES WITH MOBILITY, PATIENT IS UP TO RESTROOM FREQUENTLY TO VOID. BUMEX GTT INFUSING PER EMAR AT 4. CARDIZEM GTT INFUSING AT 5. PO METOPROLOL ADMINISTERED PER EMAR. BP STABLE. DENIES CHEST PAIN, PRESSURE. IS ON ROOM AIR, SATS >90%. DENIES SHORTNESS OF BREATH AT REST, EXPERIENCES MILD TACHYPNEA WITH MOBILITY. COMPLIANT WITH CPAP USE WHILE SLEEPING. CALL LIGHT IN REACH.
[2023-09-01] VITALS (10 sets, daily range): BP systolic 100–130; BP diastolic 73–98
--- NOTE | 2023-09-01 05:44 | NUR ---
SHIFT SUMMARY: NO ACUTE CHANGES SINCE ASSUMPTION OF CARE. PATIENT REMAINS INDEPENDENT IN ROOM AND WITH ADLs. TELEMETRY SHOWING AFIB 80s-130s. 140s-150s WITH ACTIVITY. UP FREQUENTLY TO RESTROOM TO VOID. BUMEX GTT INFUSING 4ML/HR. CARDIZEM GTT INFUSING AT 5ML/HR. BP STABLE, SBP 100s-120s. MAP >65. REMAINS ON ROOM AIR WHILE AWAKE. CPAP USE WHILE SLEEPING. SATs >90%. NO BM THIS SHIFT. CALL LIGHT IN REACH. WILL REPORT TO ONCOMING RN.
[2023-09-01 07:23] LABS: Bun/Creatinine Ratio 21.9 (12.0-20.0); Calcium, Blood 9.3 mg/dL (8.5-10.1); Creatinine, Blood 3.06 mg/dL (0.60-1.20); Potassium, Blood 3.4 mmol/L (3.5-5.5); Uric Acid, Blood 20.7 mg/dL (3.5-7.2)
[2023-09-01] MEDS ORDERED: Potassium Chloride 10 Meq Tablet SA PO SCH (08:30)
[2023-09-01] MEDS ORDERED: AcetaZOLAMIDE Sodium 500 MG Vial IV SCH (16:00)
--- NOTE | 2023-09-01 18:25 | NUR ---
SHIFT SUMMARY; ASSUMED CARE AT 0700, A/A/OX4, INDEPENDANT IN ROOM. CARDIZEM INFUSING AT 5MG/HR, BUMEX AT 4MG/HR. 1500ML FLUID RESTRICTION. AFIB WITH RATE 90-130'S. BLE EDEMA 3+. VARIOUS ABRASIANS AND SCABS TO BLE. NO ACUTE CHANGES, WILL CONTINUE TO MONITOR AND TREAT UNTIL CHANGE OF SHIFT.
[2023-09-01] MEDS ORDERED: Bumetanide 0.25 MG/ML 10ML Vial IV SCH (18:35)
[2023-09-01 18:47] LABS: Bun/Creatinine Ratio 22.2 (12.0-20.0); Calcium, Blood 9.9 mg/dL (8.5-10.1); Creatinine, Blood 3.15 mg/dL (0.60-1.20); Potassium, Blood 3.4 mmol/L (3.5-5.5)
--- NOTE | 2023-09-01 21:18 | NUR ---
ASSUMPTION OF CARE: AFTER RECEIVING REPORT FROM ERIBERTO ONEILL, THIS RN ASSUMED CARE AT APPROX 1915. PATIENT ALERT, SITTING IN CHAIR VISITING WITH FAMILY AT BEDSIDE. IS ALERT AND ORIENTED X4. INDEPENDENT IN ROOM AND WILL ALL ADLs. CALLS APPROPRIATELY NEEDED. TELEMETRY SHOWING AFIB 90s-130s. RATE INCREASES WITH ACTIVITY, IS UP FREQUENTLY TO USE RESTROOM. BUMEX GTT INFUSING PER EMAR AT 2 (0.5MG). TITRATED DOWN PER NEPHROLOGY ORDER. SEE ICU FLOWSHEET DOCUMENTATION. CARDIZEM GTT INFUSING AT 5ML/HR. BP STABLE, SBP 120s. DENIES CHEST PAIN, PRESSURE. IS ON ROOM AIR, SATs >90%. COMPLIANT WITH CPAP USE WHILE SLEEPING, INDEPENDENT WITH DEVICE. RESPIRATIONS EVEN, UNLABORED. DENIES SHORTNESS OF BREATH AT REST, DOES REPORT MILD DYSPNEA WITH MOBILITY. BLE WEEPING EDEMA, GAUZE AND TAPE DRESSING IN PLACE. CHANGING NEEDED TO KEEP C/D/I. CALL LIGHT IN REACH.
[2023-09-02] VITALS (10 sets, daily range): BP systolic 91–117; BP diastolic 60–89
--- NOTE | 2023-09-02 05:56 | NUR ---
SHIFT SUMMARY: NO ACUTE CHANGES SINCE ASSUMPTION OF CARE. PATIENT REMAINS INDEPENDENT IN ROOM AND WITH ALL ADLs. SLEPT INTERMITTENTLY THROUGHOUT SHIFT. TELEMETRY SHOWING AFIB 90s-130s. RATE INCREASE 140s-150s WITH ACTIVITY. CARDIZEM GTT INFUSING AT 5MG/HR. BUMEX GTT INFUSING AT 0.5MG/HR. PATIENT EXPERIENCED X1 EPISODE OF INTENSE LEG CRAMPING THAT HAS SINCE RESOLVED. UP FREQUENTLY TO VOID. BP STABLE, SBP 90s-120s. MAP >65. REMAINS ON ROOM AIR, SATs >90%. CALL LIGHT IN REACH. WILL REPORT TO ONCOMING RN.
[2023-09-02 05:57] LABS: BASOPHILS ABSOLUTE AUTO 0.03 K/mm3 (0.00-0.23); BASOPHILS PERCENT AUTO 0 % (0-2); EOSINOPHILS ABSOLUTE AUTO 0.15 K/mm3 (0.00-0.68); EOSINOPHILS PERCENT AUTO 2 % (0-6); Hematocrit 46.7 % (37.0-53.0); Hemoglobin 15.2 g/dL (13.5-17.5); IMMATURE GRAN ABSOLUTE AUTO 0.01 K/mm3 (0.00-0.10); IMMATURE GRAN PERCENT AUTO 0 % (0-1); LYMPHOCYTES ABSOLUTE AUTO 1.66 K/mm3 (0.84-5.20); LYMPHOCYTES PERCENT AUTO 23 % (21-46); MONOCYTES ABSOLUTE AUTO 0.67 K/mm3 (0.16-1.47); MONOCYTES PERCENT AUTO 9 % (4-13); Mean Corpuscular HGB 27.9 pg (26.0-34.0); Mean Corpuscular HGB Conc 32.5 g/dL (31.5-36.5); Mean Corpuscular Volume 86 fL (80-100); Mean Platelet Volume 10.6 fL (9.1-12.4); NEUTROPHILS ABSOLUTE AUTO 4.58 K/mm3 (1.96-9.15); NEUTROPHILS PERCENT AUTO 65 % (41-73); Platelet Count 168 K/mm3 (150-400); RDW Coefficient Variation 16.2 % (11.7-14.2); RDW Standard Deviation 50.9 fL (35.1-46.3); Red Blood Cell Count 5.44 M/mm3 (4.30-5.90)
[2023-09-02 06:22] LABS: Bun/Creatinine Ratio 22.4 (12.0-20.0); Calcium, Blood 9.4 mg/dL (8.5-10.1); Creatinine, Blood 3.08 mg/dL (0.60-1.20)
[2023-09-02] MEDS ORDERED: Docusate Sodium 100 MG Cap PO SCH (09:00)
[2023-09-02] MEDS ORDERED: Bumetanide 0.25 MG/ML 10ML Vial IV SCH (10:35)
--- NOTE | 2023-09-02 15:09 | NUR ---
WOUND CARE PT WITH WEEPING BLE MOST LIKELY D/T FLUID OVERLOAD. WOULD RECOMMEND CLEANSING DAILY THEN COVER WEEPY AREAS WITH ABD/ROLLED GAUZED. WOULD RECOMMEND ELEVATION AND FOOT PUMPS AT REST.
--- NOTE | 2023-09-02 18:13 | NUR ---
SHIFT SUMMARY; ASSUMED CARE AT 0700. A/A/OX4. SITS IN RECLINER MOST OF DAY, INDEPENDANT IN ROOM. IV BUMEX CONTINUES AT 0.5MG PER HOUR. WILL DC AFTER CURRENT BAG IS EMPTY PER DR. BENZ. CARDIZEM GTT AT 5MG/HR. REMAINS IN AFIB WITH RATE 90-120. EDEMA TO BLE 3+ WITH WEEPING. WRAPPED BY MARTHA FROM WOUND CARE AND WOUND CARE ORDERS PLACED FOR DAILY DRESSING CHANGES. NO ACUTE CHANGES DURING SHIFT. PLEASANT AND COOPERATIVE WITH CARE, WILL CONTINUE TO MONITOR AND TREAT UNTIL CHANGE OF SHIFT.
--- NOTE | 2023-09-02 21:32 | NUR ---
ASSUMPTION OF CARE: AFTER RECEIVING REPORT FROM ERIBERTO ONEILL, THIS RN ASSUMED CARE AT APPROX 1915. PATIENT ALERT AND ORIENTED X4, INDEPENDENT IN ROOM. SITTING IN CHAIR DURING INITIAL ENCOUNTER. TELEMETRY SHOWING AFIB 80s-120s. RATE INCREASE TO 130s-150s WITH ACTIVITY. UP FREQUENTLY TO USE RESTROOM. BUMEX GTT INFUSING AT 0.5MG, TO BE DC'd PER NEPHROLOGY ORDER AFTER COMPLETION OF CURRENT BAG. CARDIZEM GTT INFUSING AT 5MG/HR. BP SOFT THIS EVENING, SBP 90s. MAP >65. DENIES CHEST PAIN, PRESSURE. IS COMPLIANT WITH FLUID RESTRICTION. BLE WEEPING EDEMA. WOUND CARE CONSULT TODAY. KERLEX, ABD PAD DRESSING IN PLACE, CHANGING PRN TO KEEP C/D/I. ON ROOM AIR, SATs >90%. COMPLIANT WITH CPAP USE WHILE SLEEPING. RESPIRATIONS EVEN, UNLABORED. REPORTING 4/10 HEADACHE PAIN, MANAGED PER EMAR WITH PO TYLENOL. CALL LIGHT IN REACH.
[2023-09-03] VITALS (9 sets, daily range): BP systolic 89–116; BP diastolic 62–86
[2023-09-03] MEDS ORDERED: AcetaZOLAMIDE Sodium 500 MG Vial IV SCH
--- NOTE | 2023-09-03 06:02 | NUR ---
SHIFT SUMMARY: NO ACUTE CHANGES SINCE ASSUMPTION OF CARE. PATIENT REMAINS INDEPENDENT IN ROOM AND WITH ALL ADLs. TELEMETRY SHOWING AFIB 80s-120s. INCREASES TO 130s-150s WITH ACTIVITY. BP REMAINS SOFT, SBP 90s-100s. MAP >65. FINAL BAG OF BUMEX GTT INFUSING AT 0.5MG. CARDIZEM GTT INFUSING AT 5MG/HR. REMAINS ON ROOM AIR WHILE AWAKE, SATs >90%. USES CPAP WHILE SLEEPING. VOIDING. CALL LIGHT IN REACH. WILL REPORT TO ONCOMING RN.
[2023-09-03] MEDS ORDERED: Torsemide 20 MG TAB PO SCH ×2 (09:00)
[2023-09-03] MEDS ORDERED: Diltiazem HCl 300 MG Cap.CD PO SCH (09:00)
[2023-09-03 09:04] LABS: Bun/Creatinine Ratio 21.4 (12.0-20.0); Calcium, Blood 9.3 mg/dL (8.5-10.1); Creatinine, Blood 3.36 mg/dL (0.60-1.20); Potassium, Blood 2.9 mmol/L (3.5-5.5)
[2023-09-03] MEDS ORDERED: Potassium Chloride 20 MEQ TabCR PO ONE (12:00)
[2023-09-03] MEDS ORDERED: Calcium Carbonate 500 MG Tab Chew PO PRN (12:35)
[2023-09-03] MEDS ORDERED: Cyclobenzaprine HCl 10 MG Tab PO PRN (12:40)
--- NOTE | 2023-09-03 17:50 | NUR ---
SHIFT SUMMARY; ASSUMED CARE AT 0700. A/A/OX4. INDEPENDANT IN ROOM, SITS IN RECLINER WITH INTERMITANT NAPS IN BED DURING SHIFT. BUMEX IV DRIP COMPLETED AND DC'D PER ORDERS. PO CARDIZEM STARTED IN AM, DRIP TITRATED OFF AT 1600. HR AFIB 80-100, WILL CONTINUE TO CLOSELY MONITOR. BLE EDEMA AND WEAPING PER PREVIOUS SHIFT. 1500ML FLUID RESTRICTION. WILL CONTINUE TO MONITOR AND TREAT UNTIL CHANGE OF SHIFT.
[2023-09-03] MEDS ORDERED: Rivaroxaban 10 MG Tab PO SCH (18:00)
[2023-09-04 03:48] VITALS: BP 96/70
[2023-09-04 04:03] LABS: BASOPHILS ABSOLUTE AUTO 0.04 K/mm3 (0.00-0.23); BASOPHILS PERCENT AUTO 1 % (0-2); EOSINOPHILS ABSOLUTE AUTO 0.13 K/mm3 (0.00-0.68); EOSINOPHILS PERCENT AUTO 2 % (0-6); Hematocrit 46.6 % (37.0-53.0); Hemoglobin 15.2 g/dL (13.5-17.5); IMMATURE GRAN ABSOLUTE AUTO 0.01 K/mm3 (0.00-0.10); IMMATURE GRAN PERCENT AUTO 0 % (0-1); LYMPHOCYTES ABSOLUTE AUTO 1.98 K/mm3 (0.84-5.20); LYMPHOCYTES PERCENT AUTO 26 % (21-46); MONOCYTES ABSOLUTE AUTO 0.75 K/mm3 (0.16-1.47); MONOCYTES PERCENT AUTO 10 % (4-13); Mean Corpuscular HGB 28.4 pg (26.0-34.0); Mean Corpuscular HGB Conc 32.6 g/dL (31.5-36.5); Mean Corpuscular Volume 87 fL (80-100); Mean Platelet Volume 11.3 fL (9.1-12.4); NEUTROPHILS ABSOLUTE AUTO 4.84 K/mm3 (1.96-9.15); NEUTROPHILS PERCENT AUTO 63 % (41-73); Platelet Count 176 K/mm3 (150-400); RDW Coefficient Variation 16.1 % (11.7-14.2); RDW Standard Deviation 51.1 fL (35.1-46.3); Red Blood Cell Count 5.36 M/mm3 (4.30-5.90); White Blood Cell Count 7.75 K/mm3 (4.00-11.30)
--- NOTE | 2023-09-04 04:39 | NUR ---
SHIFT SUMMARY PT A&O X4. ABLE TO MAKE NEEDS KNOWN. SBP 80-90'S AT BEGINNING OF SHIFT. DIURETICS GIVEN, METOPROLOL HELD D/T SBP AFTER DISCUSSING WITH AUTO BODY STRAIGHTENER NORA. SBP CONTINUED TO BE 90'S T/O THE REMAINDER OF THE SHIFT. MARIONZEM GTT ON STANDBY AT BEGINNING OF SHIFT, REMAINED ON SB T/O THIS SHIFT WELL. AFIB WITH HR 80-110'S. DENIES CHEST PAIN/PRESSURE. ON RA WITH SPO2 >92%. PT INDEPENDENT WITH ADL'S. BED IN LOWEST POSITION AND CALL LIGHT WITHIN REACH. THIS RN WILL REPORT TO ONCOMING DAYSHIFT RN.
[2023-09-04 04:48] LABS: Albumin, Blood 3.4 g/dL (3.4-5.0); Albumin/Globulin Ratio 0.9 (0.8-1.8); Bilirubin, Total 1.3 mg/dL (0.1-1.0); Bun/Creatinine Ratio 21.4 (12.0-20.0); Creatinine, Blood 3.65 mg/dL (0.60-1.20); Globulin, Blood 3.7 g/dL (2.2-4.0); Potassium, Blood 3.3 mmol/L (3.5-5.5); Total Protein, Blood 7.1 g/dL (6.4-8.2); Uric Acid, Blood 20.5 mg/dL (3.5-7.2)
[2023-09-04] MEDS ORDERED: Pantoprazole Sodium 20 MG Tab PO SCH (06:00)
[2023-09-04 07:20] VITALS: BP 107/71
[2023-09-04] MEDS ORDERED: Potassium Chloride 20 MEQ TabCR PO ONE (10:00)
[2023-09-04] MEDS ORDERED: Potassium Chloride 20 MEQ TabCR PO SCH ×2 (10:00→21:00)
[2023-09-04 12:25] VITALS: BP 111/76
[2023-09-04 15:48] VITALS: BP 115/70
--- NOTE | 2023-09-04 16:59 | NUR ---
SHIFT SUMMARY: PT REMAINS ALERT AND ORIENTED X4, ABLE TO FOLLOW COMMANDS AND MAKE NEEDS KNOWN. STRENGTH EQUAL BILATERALLY. BP STABLE. HR AFIB 80-120'S. AFEBRILE. SPO2 >96% ON ROOM AIR. RESPIRATIONS EVEN AND UNLABORED AT REST. PT DENIES CP/PRESSURE. RADIAL PULSES STRONG, PEDAL PULSES FAINT. +3 EDEMA NOTED IN BLE. PT CURRENTLY DIUERSING, GOOD URINE OUTPUT. NO BM. PT ABLE TO SLEEP ON AND OFF MAJORITY OF THE SHIFT. BED IN LOW, CALL LIGHT IN REACH, WILL REPORT TO ONCOMING RN.
[2023-09-04 17:17] LABS: Bun/Creatinine Ratio 21.7 (12.0-20.0); Creatinine, Blood 3.5 mg/dL (0.60-1.20); Potassium, Blood 3.2 mmol/L (3.5-5.5)
[2023-09-04 19:32] VITALS: BP 108/66
[2023-09-04] MEDS ORDERED: Famotidine 20 MG Tab PO SCH (21:00)
[2023-09-04 23:32] VITALS: BP 92/62
[2023-09-05 04:24] VITALS: BP 112/68
--- NOTE | 2023-09-05 04:42 | NUR ---
SHIFT SUMMARY PT A&O X4. ABLE TO MAKE NEEDS KNOWN. IND WITH ADL'S. AFIB WITH HR 70-100'S DURING THIS SHIFT. BP STABLE. AFEBRILE. ON RA WITH SPO2 >92%. PT CONTINUES TO HAVE TREMORS IN BILATERAL HANDS WHILE PERFORMING MORE FINE MOTOR SKILLS. PT REPORTED FEELING "FUZZY/LOOPY" DURING THIS SHIFT AND STATES THAT HE FEELS LIKE HIS "LACK OF SLEEP IS CATCHING UP TO HIM". PT REPORTS SLEEPING FOR 1-2 HR INCREMENTS AT A TIME. BED IN LOWEST POSITION AND CALL LIGHT WITHIN REACH. THIS RN WILL REPORT TO ONCOMING DAYSHIFT RN.
[2023-09-05 06:06] LABS: Digoxin (Lanoxin) 0.68 ug/mL (0.80-2.00)
[2023-09-05 06:46] LABS: Albumin, Blood 3.6 g/dL (3.4-5.0); Anion Gap 9 mmol/L (6-16); Blood Urea Nitrogen 75 mg/dL (8-24); Bun/Creatinine Ratio 21.4 (12.0-20.0); CO2, Blood 34 mmol/L (21-32); Calcium, Blood 8.7 mg/dL (8.5-10.1); Chloride, Blood 93 mmol/L (98-108); Glomerular Filtration Rate 21 (60-); Glucose, Blood 115 mg/dL (70-99); Phosphorus, Blood 3.6 mg/dL (2.5-4.9); Potassium, Blood 3.1 mmol/L (3.5-5.5); Sodium, Blood 136 mmol/L (136-145); Uric Acid, Blood 21.1 mg/dL (3.5-7.2)
[2023-09-05 07:57] VITALS: BP 109/76
[2023-09-05] MEDS ORDERED: Potassium Chloride 20 MEQ TabCR PO SCH (09:00)
[2023-09-05] MEDS ORDERED: Torsemide 20 MG TAB PO SCH (09:00)
[2023-09-05 14:55] VITALS: BP 123/67
--- NOTE | 2023-09-05 17:09 | NUR ---
SHIFT SUMMARY: PT REMAINS ALERT AND ORIENTED X4 ABLE TO FOLLOW COMMANDS AND MAKE NEEDS KNOWN. BP STABLE. HR REMAINS AFIB 80'S-110'S. AFEBRILE. SPO2 >96% ON ROOM AIR. IND IN ROOM. PT CONTINUES TO DIURESE. DENIES PAIN THROUGHOUT. PT ABLE TO SLEEP ON AND OFF THIS SHIFT. CURRENTLY SITTING IN CHAIR EATING DINNER. BED IN LOW, CALL LIGHT IN REACH, WILL REPORT TO ONCOMING RN.
[2023-09-05 20:37] VITALS: BP 118/76
[2023-09-05 23:27] VITALS: BP 116/70
[2023-09-05] MEDS ORDERED: Melatonin 5 MG Tablet PO PRN (23:35)
[2023-09-06 04:20] VITALS: BP 92/60
--- NOTE | 2023-09-06 05:17 | NUR ---
SHIFT SUMMARY NO ACUTE CHANGES OVERNIGHT. THIS RN SPOKE TO MD CLINTON REGARDING VTACH DURING DAYSHIFT; ADDED MAGNESIUM TO MORNING LABS. NO NOTED VTACH DURING THIS SHIFT. AFIB CONTINUES WITH HR 80-110'S. INCREASED HR WITH EXERTION. BP STABLE. ON RA WITH SPO2 >92%. IND WITH ADL'S. NO CHANGES TO NEURO. ABLE TO MAKE NEEDS KNOWN. BED IN LOWEST POSITION AND CALL LIGHT WITHIN REACH. THIS RN WILL REPORT TO ONCOMING DAYSHIFT RN.
[2023-09-06 05:55] LABS: Albumin, Blood 3.6 g/dL (3.4-5.0); Anion Gap 7 mmol/L (6-16); Blood Urea Nitrogen 79 mg/dL (8-24); Bun/Creatinine Ratio 22.8 (12.0-20.0); CO2, Blood 35 mmol/L (21-32); Calcium, Blood 9.1 mg/dL (8.5-10.1); Chloride, Blood 94 mmol/L (98-108); Creatinine, Blood 3.47 mg/dL (0.60-1.20); Glomerular Filtration Rate 21 (60-); Glucose, Blood 110 mg/dL (70-99); Magnesium, Blood 2.2 mg/dL (1.6-2.4); Potassium, Blood 2.8 mmol/L (3.5-5.5); Sodium, Blood 136 mmol/L (136-145)
[2023-09-06] MEDS ORDERED: Potassium Chloride 20 MEQ TabCR PO ONE (06:20)
[2023-09-06] MEDS ORDERED: Potassium Chloride 20 MEQ TabCR PO SCH (08:00)
[2023-09-06 08:27] VITALS: BP 101/50
[2023-09-06 16:39] VITALS: BP 122/64
[2023-09-06 16:40] VITALS: BP 122/64
--- NOTE | 2023-09-06 17:17 | NUR ---
SHIFT SUMMARY: PT WITH NO ACUTE EVENTS THIS SHIFT. BP STABLE. HR AFIB 90'S. PT CONTINUES TO DIURESE, APPROX 1100 ML OF OUTPUT THIS SHIFT. PT IND WITH ALL ADL'S. ABLE TO SLEEP ON AND OFF. RECEIVED SHOWER THIS AFTERNOON, DRESSINGS REAPPLIED TO BLE. PT CURRENTLY SITTING IN RECLINER, EATING DINNER. CALL LIGHT IN REACH, WILL REPORT TO ONCOMING RN.
[2023-09-06 19:29] VITALS: BP 108/75
[2023-09-06 23:00] VITALS: BP 118/83
[2023-09-07 04:03] VITALS: BP 101/76
--- NOTE | 2023-09-07 04:47 | NUR ---
SHIFT SUMMARY PT ALERT AND ORIENTED X 4, COOPERATIVE WITH CARE AND ABLE TO MAKE NEEDS KNOWN. PERRLA. HE IS ON RA AND MAINTAINING 02 SATURATION ABOVE 92%, HE HAS DENIED SOB ALL SHIFT. HR AFIB 80'S-90'S, HE HAS DENIED CHEST PAIN/PRESSURE ALL SHIFT. PT CONTINENT OF BLADDER AND BOWELS, USES RESTROOM INDEPENDENTY AND TOLERATES WELL. NO BOWEL MOVEMENT THIS SHIFT. 3+ SWELLING TO BLE. PT WAS ABLE TO GET SEVERAL HOURS OF SLEEP THIS SHIFT. PT CURRENTLY RESTING IN HIS ROOM, CALL LIGHT WITHIN REACH.
[2023-09-07 05:23] LABS: Albumin, Blood 3.6 g/dL (3.4-5.0); Anion Gap 2 mmol/L (6-16); Blood Urea Nitrogen 81 mg/dL (8-24); Bun/Creatinine Ratio 23.1 (12.0-20.0); CO2, Blood 38 mmol/L (21-32); Chloride, Blood 98 mmol/L (98-108); Creatinine, Blood 3.51 mg/dL (0.60-1.20); Glomerular Filtration Rate 21 (60-); Glucose, Blood 116 mg/dL (70-99); Phosphorus, Blood 4.2 mg/dL (2.5-4.9); Potassium, Blood 2.9 mmol/L (3.5-5.5); Sodium, Blood 138 mmol/L (136-145)
[2023-09-07] MEDS ORDERED: Potassium Chloride 20 MEQ TabCR PO ONE ×2 (05:40→12:40)
[2023-09-07 08:38] VITALS: BP 113/72
--- NOTE | 2023-09-07 10:06 | NUR ---
AM NOTE this rn assumed care at 0700. vital signs stable. patient is alert and oriented x4. perrla. patient is able to make needs known and uses call light appropriately. patient is independent in the room. patient did endorse some loneliness to this rn. this rn sat in the room wit the patient and listened to him talk how he was feeling and provided therapeutic commmunication and listening. patient denies any pain, chest pain/pressure, or shortness of breath. see shift assessment for further detials. plan of care is up to date at this time.
[2023-09-07 11:56] VITALS: BP 119/73
--- NOTE | 2023-09-07 12:45 | NUR ---
UPDATE md mario in to see patient and discussed plan of care. additional po potassium order. if patient potassium improves and remains within normal limits plan to discharge in the next day or two. patient made medical status with tele
[2023-09-07 16:16] VITALS: BP 118/92
[2023-09-07 17:29] LABS: Bun/Creatinine Ratio 22.1 (12.0-20.0); Calcium, Blood 9.1 mg/dL (8.5-10.1); Creatinine, Blood 3.44 mg/dL (0.60-1.20); Potassium, Blood 3.4 mmol/L (3.5-5.5)
--- NOTE | 2023-09-07 17:54 | NUR ---
shift summary patient neuro remains intact. vitals remain stable. tele afib 80-100s. patient is independent in room. plan of care remains up to date.
[2023-09-07] MEDS ORDERED: Potassium Chloride 20 MEQ/15 ML UDC PO ONE (20:00)
[2023-09-07] MEDS ORDERED: Lisinopril 5 MG Tab PO SCH (20:00)
[2023-09-07 20:46] VITALS: BP 104/67
[2023-09-07] MEDS ORDERED: Losartan Potassium 25 MG Tab PO SCH (21:00)
[2023-09-08 03:54] VITALS: BP 111/70
[2023-09-08 05:08] LABS: Albumin, Blood 3.7 g/dL (3.4-5.0); Anion Gap 4 mmol/L (6-16); Blood Urea Nitrogen 79 mg/dL (8-24); Bun/Creatinine Ratio 22.5 (12.0-20.0); CO2, Blood 34 mmol/L (21-32); Calcium, Blood 9.6 mg/dL (8.5-10.1); Chloride, Blood 98 mmol/L (98-108); Creatinine, Blood 3.51 mg/dL (0.60-1.20); Glomerular Filtration Rate 21 (60-); Glucose, Blood 107 mg/dL (70-99); Phosphorus, Blood 4.3 mg/dL (2.5-4.9); Potassium, Blood 3.3 mmol/L (3.5-5.5); Sodium, Blood 136 mmol/L (136-145); Uric Acid, Blood 19.6 mg/dL (3.5-7.2)
--- NOTE | 2023-09-08 05:24 | NUR ---
SHIFT SUMMARY PT ALERT AND ORIENTED X 4, COOPERATIVE WITH CARE AND ABLE TO MAKE NEEDS KNOWN. PERRLA. HE IS ON RA AND MAINTAINING 02 SATURATION ABOVE 92% AND HAS DENIED SOB ALL SHIFT. HR AFIB 80'S, BP STABLE, HE HAS DENIED CHEST PAIN/PRESSURE ALL SHIFT. PT IS CONTINENT OF BLADDER AND BOWELS, USES RESTROOM INDEPENDENTLY IN ROOM. SWELLING TO BLE, DRESSING TO RLE C/D/I. PT SLEPT FOR A FEW HOURS THIS SHIFT. HE IS CURRENTLY UP IN CHAIR AND CALL LIGHT WITHIN REACH.
[2023-09-08 07:38] VITALS: BP 104/76
[2023-09-08] MEDS ORDERED: AcetaZOLAMIDE 250 MG Tab PO SCH (09:00)
[2023-09-08] MEDS ORDERED: Allopurinol 100 MG Tab PO SCH (09:00)
[2023-09-08 15:46] VITALS: BP 114/68
[2023-09-08 17:04] LABS: Bun/Creatinine Ratio 21.9 (12.0-20.0); Calcium, Blood 9.5 mg/dL (8.5-10.1); Creatinine, Blood 3.51 mg/dL (0.60-1.20); Potassium, Blood 3.3 mmol/L (3.5-5.5)
--- NOTE | 2023-09-08 17:54 | NUR ---
SHIFT SUMMARY; ASSUMED CARE AT 0700. A/A/OX4, PLEASANT AND COOPERATIVE WITH CARE. INDEPENDANT IN ROOM. BLE EDEMA IMPROVED FROM PREVIOUS SHIFTS. RIGHT LEG DRESSING CHANGED BY PATIENT DURING SHIFT AND ARE C/D/I. 1500ML FLUID RESTRICTION. MED STATUS, AFIB WITH RATE 70-90. DENIES CP OR SOB. NO ACUTE CHANGES, WILL CONTINUE TO MONITOR AND TREAT UNTIL CHANGE OF SHIFT.
[2023-09-08] MEDS ORDERED: Spironolactone 25 MG Tab PO SCH (18:00)
--- NOTE | 2023-09-08 18:02 | NUR ---
Pt. is awake and sitting in a chair when he welcomes my visit. Pt. displays evidence of genuine trust, and rapport was quickly re-established as I had seen the Pt. the previous week. This labor and employment paralegal asked guided questions to bring forth feelings toward the work that recovery will require and identify other suportive relationships in the Pts. life. Self care and self reflection was encouraged as we aligned the Pts. values with his new sense of purpose. Prayed with the Pt. Pt. verbalized gratitude for the spiritual care visit.
[2023-09-08 20:56] VITALS: BP 102/76
--- NOTE | 2023-09-08 21:27 | NUR ---
PT IS ALERT AND ORIENTED X 4, COOPERATIVE WITH CARE AND ABLE TO MAKE NEEDS KNOWN. PERRLA. HE IS ON RA AND MAINTAINING 02 SATURATION ABOVE 92%, HE DENIES SOB. HR AFIB 80'S-100'S, HE HAS DENIES CHEST PAIN/PRESSURE. PT IS INDEPENDENT IN ROOM. HE IS CONTINENT OF BLADDER AND BOWELS. SKIN SORES AND EDEMA TO BLE, DRESSINGS C/D/I. PT HAS STARTED WALKING LAPS ROUND THE UNIT, HE HAS TAKEN 3 LAPS AROUND THE NURSING STATION SO FAR THIS SHIFT, HE TOLERATED WELL. PT CURRENTLY UP IN CHAIR WITH CALL LIGHT WITHIN REACH.
[2023-09-09 03:21] VITALS: BP 106/78
[2023-09-09 04:42] LABS: Digoxin (Lanoxin) 0.83 ug/mL (0.80-2.00)
--- NOTE | 2023-09-09 06:21 | NUR ---
SHIFT SUMMARY NO ACUTE CHANGES, SEE PREVIOUS NOTE. PT TOOK 2 MORE LAPS AROUND THE UNIT TONIGHT. PT REQUESTED SOME TYLENOL BECAUSE HE SAID HIS BACK STARTED HURTING AFTER HE MOVED THE WRONG WAY IN BED. PT WAS MEDICATED PER EMAR. PT DID NOT SLEEP A LOT THIS SHIFT. HE IS CURRENTLY RESTING IN HIS ROOM AND CALL LIGHT WITHIN REACH.
--- NOTE | 2023-09-09 08:57 | NUR ---
AM NOTE... ASSUMED CARE OF PT AT 0700. PT IS A&Ox4 AND IND IN THE ROOM. HE IS IN AFIB IN THE 80'S-100'S. BP STABLE. PT HAS 1+ EDEMA NOTED TO HIS BLE. PT IS ON RA WITH O2 SATS>92% L/S CLEAR T/O. PT IS UP IN RECLINER CHAIR AND IND WITH ALL ADLs. PT IS TO TRANSFER TO MEDICAL FLOOR ONCE REPORT IS GIVEN TO JUANIS ONEILL. WILL CONTINUE TO MONITOR UNTIL REPORT IS GIVEN.
[2023-09-09] MEDS ORDERED: Diltiazem HCl 180 MG Cap.CD PO SCH (09:00)
[2023-09-09 09:02] VITALS: BP 94/70
[2023-09-09 09:30] LABS: Albumin, Blood 3.7 g/dL (3.4-5.0); Albumin/Globulin Ratio 0.9 (0.8-1.8); Bilirubin, Total 1.2 mg/dL (0.1-1.0); Bun/Creatinine Ratio 21.7 (12.0-20.0); Calcium, Blood 9.4 mg/dL (8.5-10.1); Creatinine, Blood 3.78 mg/dL (0.60-1.20); Globulin, Blood 4.1 g/dL (2.2-4.0); Total Protein, Blood 7.8 g/dL (6.4-8.2)
[2023-09-09] MEDS ORDERED: Potassium Chloride 20 MEQ TabCR PO ONE (10:00)
[2023-09-09 10:27] VITALS: BP 101/77
--- NOTE | 2023-09-09 11:10 | NUR ---
AGREE WITH PREVIOUS HUMAN PROJECTILE.
--- NOTE | 2023-09-09 13:07 | NUR ---
Pt.is sitting up in a chair preparing to eat lunch. Pt. had been transferred to the med floor. Pt. verbalizes his desire to go home, but knows that he needs to build his potassium numbers. Pt. displayed evidence of understanding, and verbalized gratitiude for the pastoral care he has received, and the spiritual care visit.
--- NOTE | 2023-09-09 15:25 | NUR ---
ASSUMED CARE OF PATIENT UPON HIS ARRIVAL FROM PCU 4 VIA W/C AT 1105. HE IS A&O X 4, PLEASANT AND COOPERATIVE. TELEMETRY IN PLACE, AFIB IN THE 80'S AT REST, BUT CAN INCREASE UP TO 150'S WITH ACTIVITY, RESOLVES ON ITS OWN WHEN HE RESTS. DENIED PAIN, BUT EDUCATED HIM TO REPORT ANY CHEST PAIN IMMEDIATELY, TO WHICH HE VERBALIZED UNDERSTANDING. ON ROOM AIR, CPAP AT BEDSIDE. ORIENTED PT TO ROOM, CALL LIGHT, FALL PRECAUTIONS.
[2023-09-09 15:57] VITALS: BP 88/65
[2023-09-09 15:57] LABS: Bun/Creatinine Ratio 20.2 (12.0-20.0); Calcium, Blood 9.2 mg/dL (8.5-10.1); Potassium, Blood 3.5 mmol/L (3.5-5.5)
[2023-09-09 16:16] VITALS: BP 110/61
--- NOTE | 2023-09-09 18:40 | NUR ---
SHIFT SUMMARY: NO ACUTE EVENTS SINCE TRANSFER. WAS TACHYCARDIC TO 150 WHILE AMBULATING, RESOLVED WITH REST, DENIED CHEST DISCOMFORT. ON TELEMTERY, A FIB 80'S. ON ROOM AIR, LUNGS DIM. POTASSIUM LEVEL THIS AFTERNOON CAME UP TO 3.5. INDEPENDENT IN ROOM.
[2023-09-09 19:50] VITALS: BP 116/76
[2023-09-10 03:42] VITALS: BP 100/72
--- NOTE | 2023-09-10 06:22 | NUR ---
SHIFT SUMMARY NOC PT A/O X 4. PLEASANT AND COOPERATIVE WITH CARE. NO ACUTE CHANGES TO REPORT. PT HR HITS 150'S WHEN AMBULATING AND GOING TO RESTROOM. PT ON TELE RUNNING AFIB IN 90'S OTHERWISE. PT AMBULATING IN HALLS WHILE PUSHING WC. PT VSS. WEARING CPAP FOR SLEEP. PT POSSIBLE DISCHARGE TODAY. PT CURRENTLY RESTING WITH BED IN LOWEST POSITION, AND CALL LIGHT WITHIN REACH.
[2023-09-10 07:19] LABS: Bun/Creatinine Ratio 21.3 (12.0-20.0); Calcium, Blood 9.2 mg/dL (8.5-10.1); Creatinine, Blood 3.8 mg/dL (0.60-1.20); Potassium, Blood 3.3 mmol/L (3.5-5.5)
[2023-09-10 07:29] VITALS: BP 117/68
[2023-09-10] MEDS ORDERED: Potassium Chloride 20 MEQ TabCR PO SCH (08:00)
[2023-09-10] MEDS ORDERED: Potassium Chloride 20 MEQ TabCR PO ONE (08:00)
[2023-09-10] MEDS ORDERED: Empagliflozin 10 MG TAB PO SCH (09:00)
[2023-09-10] MEDS ORDERED: ALLO100 PO (15:34)
[2023-09-10] MEDS ORDERED: DIGOX125 MC1 PO (15:35)
[2023-09-10] MEDS ORDERED: DILT180 PO (15:35)
[2023-09-10] MEDS ORDERED: JARDIANCE10 MG PO (15:43)
[2023-09-10] MEDS ORDERED: SPIR25 PO (15:44)
[2023-09-10] MEDS ORDERED: GABA300 PO (15:45)
[2023-09-10] MEDS ORDERED: POTCHL20ER PO (15:46)
[2023-09-10] MEDS ORDERED: Lisinopril2.5 MG PO (15:46)
[2023-09-10 16:14] LABS: Bun/Creatinine Ratio 21.4 (12.0-20.0); Calcium, Blood 9.4 mg/dL (8.5-10.1); Creatinine, Blood 3.73 mg/dL (0.60-1.20); Potassium, Blood 3.9 mmol/L (3.5-5.5)
--- NOTE | 2023-09-10 16:15 | NUR ---
DISCHARGE NOTE PT DISCHARGED TO HOME, PICKED UP BY HIS MOTHER IN [place]. IV REMOVED, TELE RETURNED. DISCHARGE EDUCATION AND INFORMATION PROVIDED. MEDICATIONS CALLED INTO HIS PHARMACY BY HIS PROVIDER.
== END 2023-09-10 16:30 | disposition home or self-care (01) | DRG 291 ==
LOC: ER 20:18 → PCU 23:00 → MEDS 09-09 11:03
PROVIDERS: Emergency Medicine; Family Medicine; Hospitalist; Internal Medicine; Internal Medicine Cardiovascular Disease; ADMIT Internal Medicine
PROC: 5A09557 Assistance with Respiratory Ventilation, Greater than 96 Consecutive Hours, Continuous Positive Airway Pressure (ICD-10-PCS; principal; 2023-08-23)
DX: I13.0 Hypertensive heart and chronic kidney disease with heart failure and stage 1 through stage 4 chronic kidney disease, or unspecified chronic kidney disease (principal); I50.23 Acute on chronic systolic (congestive) heart failure; N17.9 Acute kidney failure, unspecified; N18.4 Chronic kidney disease, stage 4 (severe); Z68.45 Body mass index [BMI] 70 or greater, adult; E87.3 Alkalosis; L03.115 Cellulitis of right lower limb; L03.116 Cellulitis of left lower limb; F17.210 Nicotine dependence, cigarettes, uncomplicated; R07.89 Other chest pain; G89.29 Other chronic pain; I48.0 Paroxysmal atrial fibrillation; E87.6 Hypokalemia; E78.5 Hyperlipidemia, unspecified; I42.0 Dilated cardiomyopathy; S81.801A Unspecified open wound, right lower leg, initial encounter; S81.802A Unspecified open wound, left lower leg, initial encounter; X58.XXXA Exposure to other specified factors, initial encounter; E79.0 Hyperuricemia without signs of inflammatory arthritis and tophaceous disease; E66.01 Morbid (severe) obesity due to excess calories; E88.810 Metabolic syndrome; K64.9 Unspecified hemorrhoids; E83.39 Other disorders of phosphorus metabolism; G47.33 Obstructive sleep apnea (adult) (pediatric); Z79.899 Other long term (current) drug therapy; Z79.01 Long term (current) use of anticoagulants; Z79.811 Long term (current) use of aromatase inhibitors; Z79.891 Long term (current) use of opiate analgesic; F43.21 Adjustment disorder with depressed mood
CPT/HCPCS: 36415; 71045; 80048; 80053; 80069; 80162; 81003; 82570; 83735; 83880; 84100; 84132; 84436; 84484; 84550; 84560; 85025; 93005; 93010; 94660; 94760; 94762; 96374; 96375; 97116; 97162; 97530; 99285-25; A9270; C9113; J1120; J1160; J1940; J2405